=== PATIENT | female | born 1950 | race Caucasian/White ===

== ENCOUNTER 2016-06-07 09:26 | Outpatient (CLI) | payer MEDICARE, OTHER ==
[~2016-06-07] VITALS: Ht 167.6 cm; Wt 62.7 kg
--- NOTE | ~2016-06-07 | HEMODYNAMI ---
PATIENT:ROBERTO HENSLEY MEDICAL RECORD: [id number] : 46 LOCATION:DDanniCAT ADMISSION DATE: 06/07/16 Generatedon:06/07/201613:31 Patient name: ROBERTO HENSLEY Patient #: [id number] SSN: [id number] : 1950 Date of study: 06/07/2016 Page: Of Hemodynamic Procedure Report Patient Data Patient Demographics Procedure consent was obtained First Name: ROBERTO Gender: Female Last Name: : 1950 [facility] Initial: J Age: 66 year(s) Patient #: [id number] Race: Unknown SSN: [id number] Additional ID: [id number] Contact details Address: [address] [place] [address] State: [place] City: [place] Zip code: [address] Past Medical History Allergies: No known allergies Admission Admission Data Admission Date: 06/07/2016 Admission Time: 9:26 Arrival Date: 06/07/2016 Arrival Time: 0:00 Admit Source: Other Insurance Payor: Medicare, Private health insurance Height (in.): 68 BSA: 1.76 (m2) Height (cm.): 172.72 BMI: 21.29 (kg/m2) Weight (lbs.): 140 Weight (kg.): 63.5 Lab Results Lab Result Date: 06/07/2016 Lab Result Time: 0:00 Biochemistry Name Units Result Min Max BUN mg/dl 21 --(----)-* 7 18 CK-MB ng/ml 1.2 --(-*--)-- 0 3.6 Creatinine mg/dl 1 --(--*-)-- 0.6 1.3 Creatinine l 46 --(*---)-- 21 215 Kinase Troponin l ng/ml 0.017 --(-*--)-- 0 0.06 CBC Name Units Result Min Max Hemoglobin g/dl 17.4 --(---*)-- 13.5 17.5 Procedure Procedure Types Cath Procedure Diagnostic Procedure [facility] w/Coronaries PCI Procedure Coronary Stent Initial Miscellaneous Procedures Moderate Sedation up to 15 minutes Procedure Description Procedure Date Procedure Date: 06/07/2016 Procedure Start Time: 13:05 Procedure End Time: 13:25 Procedure Staff Name Function José Luis Anderson MD Performing Physician Huyen Wagner RT Scrub Anne Gill RN Nurse Maranda Lomax RT Monitor Procedure Data Cath Procedure Fluoroscopy Diagnostic fluoroscopy Total fluoroscopy Time: 5.2 time: 5.2 min min Diagnostic fluoroscopy Total fluoroscopy dose: 758 dose: 758 mGy mGy Contrast Material Contrast Material Type Amount (ml) Isovue 300 140 Entry Location Entry Primary Successful Side Size Upsize Upsize Entry Closure Succes sful Closure Location (Fr) 1 (Fr) 2 (Fr) Remarks Device Remarks Femoral Right 5 Fr 6 Fr Vascade artery Short Closure System Estimated blood loss: 10 ml Diagnostic catheters Device Type Used For End Catheter Placement Cordis 5Fr Pigtail Procedure Catheter (MP) Cordis 5Fr JL 4.0 Left Coronary Catheter (MP) Angiography Cordis 5Fr 3DRC Catheter Procedure (MP) Procedure Complications No complications Procedure Medications Medication Administration Route Dosage Oxygen NC 2 l/min Lidocaine 2% added to field 20 Heparin Flush Bag added to field 2 bags (1000units/500ml NS) 0.9% NaCl I.V. 100 ml/hr Versed I.V. 1 mg Fentanyl I.V. 50 mcg Heparin Bolus I.V. 4000 units Integrilin (Bolus I.V. 5.6 ml 2mg/ml) Nitroglycerin IC/IA I.C. 150 mcg Versed I.V. 1 mg Fentanyl I.V. 50 mcg Versed I.V. 1 mg Fentanyl I.V. 50 mcg Plavix P.O. 600 mg Aspirin P.O. 325 mg Hemodynamics Rest BSA: 1.76 (m2) HGB: 17.4 (g/dl) O2 Consumption: Estimated: 165.53 (ml/min) O2 Co nsumption indexed: Estimated:94.05 (ml/min/m) Heart Rate: 74 (bpm) Snapshots Pre Cath Intra NCS Post Cath Vital Signs Time Heart Resp SPO2 etCO2 [id number] NIBP (mmHg) Rhythm Pain Sedation Rate (ipm) (%) (mmHg) (mmHg) Status Level (bpm) 12:34:02 68 18 97 0 0 202/94(126) NSR 0 (11) 10(A) , No pain 12:38:28 64 18 97 0 0 168/88(138) NSR 0 (11) 10(A) , No pain 12:42:54 64 16 96 0 0 166/78(143) NSR 0 (11) 10(A) , No pain 12:47:17 63 19 94 0 0 149/81(127) NSR 0 (11) 10(A) , No pain 12:51:39 68 17 96 0 0 155/78(123) NSR 0 (11) 10(A) , No pain 12:56:01 63 16 93 0 0 138/77(111) NSR 0 (11) 10(A) , No pain 13:00:19 63 17 95 0 0 140/78(119) NSR 0 (11) 10(A) , No pain 13:04:37 60 16 94 0 0 137/74(116) NSR 0 (11) 10(A) , No pain 13:08:57 63 17 95 0 0 124/72(104) NSR 0 (11) 9(A) , No pain 13:13:13 65 23 96 0 0 137/70(104) NSR 0 (11) 9(A) , No pain 13:17:33 66 14 95 0 0 129/71(105) NSR 0 (11) 9(A) , No pain 13:21:49 70 16 96 0 0 137/75(118) NSR 0 (11) 9(A) , No pain 13:26:05 68 16 95 0 0 124/75(116) NSR 0 (11) 10(A) , No pain Medications Time Medication Route Dose Verified Delivered Reason Notes Effectiveness by by 12:37:26 Oxygen NC 2 José Luis Rodríguez used for l/min Justin Gill garbage stoker 12:51:15 Lidocaine 2% added 20ml José Luis Ordonez for local to vial Justin Anderson MD anesthetic field 12:51:22 Heparin Flush added 2 José Luis Ordonez used for Bag to bags Justin Anderson MD procedure (1000units/500ml field NS) 12:51:31 0.9% NaCl I.V. 100 José Luis Buffie Per physician ml/hr Justin Gill RN 13:03:49 Versed I.V. 1 mg José Luis Rodríguez for sedation Justin Gill RN 13:03:56 Fentanyl I.V. 50 José Luis Buffie for sedation mcg Justin Gill RN 13:07:01 Fentanyl I.V. 50 José Luis Álvarezie for sedation mcg Justin Gill RN 13:07:58 Versed I.V. 1 mg José Luis Rodríguez for sedation Justin Gill RN 13:12:10 Heparin Bolus I.V. 4000 José Luis Rodríguez for verifi ed units Justin Gill RN anticoagulation with dr anderson 13:14:58 Integrilin I.V. 5.6 José Luis Álvarezie for wasted (Bolus 2mg/ml) ml Justin Gill RN antiplatelet 4.4 ml therapy of vial 13:16:19 Nitroglycerin I.C. 150 José Luis Rodríguez for wasted IC/IA mcg Justin Gill RN vasodilation 4.4 ml of vial 13:20:05 Versed I.V. 1 mg José Luis Rodríguez for sedation Justin Gill RN 13:20:09 Fentanyl I.V. 50 José Luis Rodríguez for sedation mcg Justin Gill RN 13:30:47 Plavix P.O. 600 José Luis Rodríguez for mg Justin Gill RN antiplatelet therapy 13:30:54 Aspirin P.O. 325 José Luis Rodríguez for mg Justin Gill RN antiplatelet therapy Procedure Log Time Note 12:13:04 Patient Height : 68 cm 12:13:13 Patient Weight : 140 kg 12:13:13 Admit Source: Other 12:13:16 Arrival Date: 06/07/2016 12:00:00 AM 12:13:26 Insurance Payor : Private health insurance, Medicare 12:13:39 Diagnostic Cath Status : Elective 12:14:54 Huyen Wagner RT(R) sent for patient. Start room use. 12:14:55 Time tracking: Regular hours 12:15:03 Plan of Care:Hemodynamics will remain stable., Cardiac rhythm will kojo in stable., Comfort level will be maintained., Respiratory function will remain adequate., Patient/ family verbilizes understanding of procedure., Procedure tolerated without complication., Recovers from procedure without complications.. 12:15:16 H&P Date Dictated: 06/02/2016 Within 30 days and on chart., H&P Addendum completed by physician on day of procedure. (MUST COMPLETE FOR ALL OUTPATIENTS). 12:15:18 Pre-procedure instructions explained to patient. 12:15:39 Use device set Femoral Dx 12:15:41 Acist Syringe opened to sterile field. 12:15:41 Bag Decanter opened to sterile field. 12:15:42 Medline Cath Pack opened to sterile field. 12:15:42 Terumo 5Fr [place] Sheath opened to sterile field. 12:15:43 St Luis 260cm J .035 wire opened to sterile field. 12:15:44 Acist Hand Control opened to sterile field. 12:15:45 Acist Manifold opened to sterile field. 12:15:45 Diagnostic Infinity 5Fr Multipack catheter opened to sterile field. 12:15:46 Tegaderm 4 x 4 opened to sterile field. 12:19:53 Patient received from Outpatients to CCL 1 Alert and oriented. [facility] in Supine position. 12:19:54 Warm blankets applied, and lidya hugger turned on for patient comfort. 12:19:55 Correct patient and procedure confirmed by team. 12:19:56 Signed procedure consent form obtained from patient. 12:20:25 H&P Date Dictated: 06/02/2016 Within 30 days and on chart., H&P Addendum completed by physician on day of procedure. (MUST COMPLETE FOR ALL OUTPATIENTS). 12:21:04 Family in waiting room. 12:21:08 Patient NPO since Midnight. 12:21:18 Patient allergic to No known allergies 12:26:30 ECG and BP/O2 sat monitors applied to patient. 12:31:35 Vital chart was started 12:31:37 Baseline sample Acquired. 12:31:43 Rhythm: sinus rhythm 12:31:45 Full Disclosure recording started 12:31:48 Is the patient allergic to Iodine/contrast media? No. 12:32:15 Previous problem with sedation/anesthesia? Yes low bl pressure 12:32:33 IV patent on arrival in left forearm with 0.9% NaCl at [facility]. 12:32:43 Snore? Yes 12:33:12 Airway obstruction? No ? 12:33:30 Airway obstruction? Yes emphazema, O2 as needed 12:33:40 Sleep apnea? No 12:33:53 Is patient on blood thinner?No 12:33:58 Patient diabetic? No. 12:: Lab Result : Creatinine 1 mg/dl 12:: Lab Result : BUN 21 mg/dl :: Lab Result : Creatinine Kinase 46 l 12:: Lab Result : CK-MB 1.2 ng/ml 12:: Lab Result : Hemoglobin 17.4 g/dl 12: Lab Result : Troponin l 0.017 ng/ml ::58 Lab results completed and on chart. 12:36:05 Right groin area was prepped with chlora-prep and draped in sterile fas hion 12:36:06 Alarms reviewed by R. N. 12:36:07 Sharps counted by scrub and verified by R.N. 12:36:08 Physician paged 12:37:26 Oxygen 2 l/min NC was administered by Anne Gill RN; used for procedur e; 12:51:15 Lidocaine 2% 20ml vial added to field was administered by José Luis Anderson MD; for local anesthetic; 12:51:22 Heparin Flush Bag (1000units/500ml NS) 2 bags added to field was admini stered by José Luis Anderson MD; used for procedure; 12:51:31 0.9% NaCl 100 ml/hr I.V. was administered by Anne Gill RN; Per physic dipak; 13:01:03 Physician arrived 13:01:04 --------ALL STOP TIME OUT------ 13:01:05 Final Timeout: patient, procedure, and site verified with staff and baltazar rodrigues. All members of the team are in agreement. 13:01:08 Right groin site verified by team. 13:01:13 Physical assessment completed. ASA score P 2 - A patient with mild syst emic disease as per José Luis Anderson MD. 13:01:18 Sedation plan: IV Moderate Sedation Versed, Fentanyl 13:01:29 Zero performed for pressure channel P1 13:03:49 Versed 1 mg I.V. was administered by Anne Gill RN; for sedation; 13:03:56 Fentanyl 50 mcg I.V. was administered by Anne Glil RN; for sedation; 13:05:27 Procedure started. 13:05:36 Local anesthetic to right femoral artery with Lidocaine 2% by José Luis wilson MD.INITIAL ACCESS ONLY 13:05:46 A 5 Fr sheath was inserted into the Right Femoral artery 13:07:01 Fentanyl 50 mcg I.V. was administered by Anne Gill RN; for sedation; 13:07:58 Versed 1 mg I.V. was administered by Anne Gill RN; for sedation; 13:07:59 A Cordis 5Fr Pigtail Catheter (MP) was advanced over the wire and used for Procedure. 13:08:09 LV gram done using SMALLWOOD 13:08:16 EF : 55 % 13:08:18 Catheter removed. 13:08:30 A Cordis 5Fr JL 4.0 Catheter (MP) was advanced over the wire and used f or Left Coronary Angiography. 13:08:58 LCA angiography performed. 13:09:52 Catheter removed. 13:10:00 A Cordis 5Fr 3DRC Catheter (MP) was advanced over the wire and used for Procedure. 13:10:08 RCA angiography performed. 13:11:07 Catheter removed. 13:11:32 Terumo 6Fr [place] Sheath opened to sterile field. 13:11:33 Enerkemtronic Launcher 6Fr AR 2.0 guide catheter opened to sterile field. 13:11:38 [employer] BasixCompak Inflation Kit opened to sterile field. 13:11:45 Mccullough Whisper J 300cm 0.014 guide wire opened to sterile field. 13:11:47 Proceeding to intervention. 13:12:10 Heparin Bolus 4000 units I.V. was administered by Anne Gill RN; for anticoagulation; verified with dr anderson 13:13:38 6 Fr AR 2 guide catheter was inserted over the wire 13:13:43 whisper wire advanced. 13:14:37 Wire advanced across lesion. 13:14:58 Integrilin (Bolus 2mg/ml) 5.6 ml I.V. was administered by Anne Gill R N; for antiplatelet therapy; wasted 4.4 ml of vial 13:15:56 Inflation Number: 1 A Biofreedom 3.0 x 18 stent was prepped and advance d across the Mid RCA. The stent was deployed at 11 INGRIS for 0:10 (min:sec). 13:16:19 Nitroglycerin IC/IA 150 mcg I.C. was administered by Anne Gill RN; fo r vasodilation; wasted 4.4 ml of vial 13:18:30 Inflation Number: 1 A Biofreedom 3.0 x 11 stent was prepped and advance d across the Dist RCA. The stent was deployed at 9 INGRIS for 0:05 (min:sec). 13:19:01 Inflation number: 2 The stent balloon was then re-inflated across the M id RCA to 13 INGRIS for 0:10 (min:sec). 13:19:42 Inflation number: 3 The stent balloon was then re-inflated across the M id RCA to 7 INGRIS for 0:10 (min:sec). 13:20:05 Versed 1 mg I.V. was administered by Anne Glil RN; for sedation; 13:20:09 Fentanyl 50 mcg I.V. was administered by Anne Gill RN; for sedation; 13:21:58 Vascade 6/7 Fr Closure Device opened to sterile field. 13:22:06 -REMOVE D 13:22:07 Stent catheter was removed intact over wire. 13:22:08 Balloon removed over the wire. 13:22:09 Wire removed. 13:22:09 Guide catheter removed. 13:23:52 Sheath upsized to a 6 Fr Short. 13:23:52 Sheath removed intact; hemostasis achieved with Vascade Closure System to the Right Femoral artery. 13:23:55 Procedure ended.(Physican Out) 13:24:08 Fluoroscopy time 05.20 minutes. 13:24:16 Fluoroscopy dose: 758 mGy 13:24:16 Flurop Dose total: 758 13:24:21 Contrast amount:Isovue 300 140ml. 13:24:23 Sharps counted by scrub and verified by R.N. 13:24:25 Insertion/operative site no bleeding no hematoma. 13:24:30 Post right femoral artery:stable 13:24:40 Post-procedure physical assessment completed. ASA score P 2 - A patient with mild systemic disease as per José Luis Anderson MD. 13:24:46 Post procedure rhythm: sinus rhythm 13:24:49 Estimated blood loss: 10 ml 13:24:51 Post procedure instruction explained to patient.Patient verbalizes understanding. 13:24:58 Procedure type changed to Cath procedure, Diagnostic procedure, LHC, LH C w/Coronaries, PCI procedure, Coronary Stent Initial, Miscellaneous Procedures, Moderate Sedation up to 15 minutes 13:25:04 Procedure and supply charges have been captured, reviewed, submitted an d are correct. 13:25:25 Procedure Complication : No complications 13:25:30 Vital chart was stopped 13:25:30 See physician's report for complete and final results. 13:25:42 Report given to Pre/Post Procedure Room. 13:25:47 Patient transfered to Pre/Post Procedure Room with Stretcher. 13:25:49 Procedure ended. 13:25:49 Full Disclosure recording stopped 13:25:52 End room use (Document Last) 13:26:14 ACC-PCI Only Patient was given prescriptions, or instructed by Eber Anderson MD to start/continue the following medications upon discharge: Plavix 13:30:47 Plavix 600 mg P.O. was administered by Anne Gill RN; for antiplatelet therapy; 13:30:54 Aspirin 325 mg P.O. was administered by Anne Gill RN; for antiplatele t therapy; Intervention Summary Intervention Notes Time ActionType Lesion and Equipment Action# Pressure Duration Attributes Used 13:15:56 Place stent Mid RCA Biofreedom 1 11 00:10 3.0 x 18 stent 13:18:30 Place stent Dist RCA Biofreedom 1 9 00:05 3.0 x 11 stent 13:19:01 Reinflate Mid RCA Biofreedom 2 13 00:10 stent 3.0 x 11 balloon stent 13:19:42 Reinflate Mid RCA Biofreedom 3 7 00:10 stent 3.0 x 11 balloon stent Device Usage Item Name Manufacture Quantity Catalog Hospital Part Current Minima l Lot# / Number Charge Number Stock Stock Serial# Code [facility] 600[facility] 886960 635589 452456 20 Sprig Bag Microtek 1 296622 81659 675523 5 Steel Wool [employer] Inc. Medline Cardinal 1 [id number] 110217 63054 906710 5 Cath Pack Health Terumo 5Fr Terumo 1 [id number] 129996 031493 556158 [address] Luis 1 281734 278526 983073 719475 30 260cm J .035 wire Acist Hand Acist 1 98839 565078 267263 806480 5 Control Medical Systems Inc Acist Acist 1 54466 228881 791271 829847 5 Needle HR Medical Systems Inc Diagnostic Cardinal 1 [id number] 940986 51685 731351 30 Infinity Health 5Fr Multipack catheter Tegaderm 4 3M 1 1626W 586247 766392 825582 5 x 4 Cordis 5Fr Cardinal 1 744961 5 Pigtail Health Catheter (MP) Cordis 5Fr Cardinal 1 994061 5 JL 4.0 Health Catheter (MP) Cordis 5Fr Cardinal 1 265322 5 3DRC Health Catheter (MP) Terumo 6Fr Terumo 1 [id number] 256145 915158 227607 40 [place] Sheath Medtronic Medtronic 1 [id number] 129412 14233 711146 1 Launcher 6Fr AR 2.0 guide catheter Merit Merit 1 [id number] 697751 943154 184234 15 BasixCompak Medical Inflation Kit Mccullough Mccullough 1 [id number] 446758 514953 964117 5 Whisper J Vascular 300cm 0.014 guide wire Biofreedom Biosensors 1 [facility]2-3018 652072 352753 5 [id number] 3.0 x 18 Europe SA stent Biofreedom Biosensors 1 [facility]2-3011 273260 363923 5 [id number] 3.0 x 11 Europe SA stent Vascade 6/7 Cardiva 1 [id number] 522860 692101 022029 5 Fr Closure Medical, Device Inc. Signature Audit [place] Stage Time Signature Unsigned Intra-Procedure 06/07/2016 Maranda Lomax 1:31:55 PM RT(R) Signatures Monitor : Maranda Lomax Signature : RT Date : Time : [facility] [address] [place] [address]
[~2016-06-07 09:26] MED LIST: ALLERGY SHOT; ASPIRIN81 MG PO; BAYER CHEWABLE81 MG PO; CALCIUM 600+D T1 TA1 PO; COLACE100 MG PO; DILANTIN100 MG PO; FETZIMA40 MG PO; FLORANEX / LACT1 TAB PO; HYDROCODON-ACE1 EAC9 PO; IMITREX100 MG; IMITREX100 MG PO; IMODIUM2 MG; K-DUR20 MEQ PO; LISINOPRIL2.5 MG PO; NITROSTAT0.4 MG; PHENERGAN25 M1 PO; PLAVIX75 MG PO; SYNTHROID175 MCG PO; TOPROL XL25 MG PO; TRILEPTAL600 MG PO
[2016-06-07] MEDS ORDERED: SYNTHROID75 MCG PO (09:46)
[2016-06-07] MEDS ORDERED: AUGMENTIN 875-11 TAB PO (09:48)
[2016-06-07] MEDS ORDERED: STERAPRED 5MG 125 MG PO (09:49)
[2016-06-07 09:58] VITALS: BP 186/91; Ht 167.6 cm; Wt 62.7 kg
[2016-06-07 10:06] LABS: BASOPHILS 0.2 % (0-2); EOSINOPHILS 0.2 % (0-7); HEMATOCRIT 50.5 % (36.0-48.0); HEMOGLOBIN 17.4 g/dL (12-16); LYMPHOCYTES 8.8 % (15-50); MCH 32.3 pg (26.0-34.0); MCHC 34.5 g/dL (31.0-37.0); MCV 93.7 fL (80.0-100.0); MONOCYTES 9.2 % (2-11); NEUTROPHILS 79.6 % (40-80); PLATELET COUNT 295 10x3/uL (130-400); RBC 5.39 10x6/uL (4.00-5.40); RDW 13.4 % (11.5-14.5)
[2016-06-07 10:30] LABS: CALC OSMOLALITY 277 mosm/kg (275-300); CALCIUM 9.4 mg/dL (8.5-10.1); CARBON DIOXIDE 24.2 mmol/L (21.0-32.0); CHLORIDE - SERUM 102 mmol/L (98-107); CKMB 1.2 U/L (0.0-3.6); CREATINE KINASE 46 UL (21-215); GLUCOSE 110 mg/dL (74-106); SODIUM 137 mmol/L (136-145); TROPONIN-I < 0.017 ng/mL (0.000-0.060); UREA NITROGEN 21 mg/dL (7-18); eGFR NON AFRICAN AMERICAN 58 mL/min (90-120)
[2016-06-07] MEDS ORDERED: PLAVIX75 MG PO (14:12)
--- NOTE | 2016-06-07 16:33 | NUR ---
1400-RIGHT GROIN CDI, C/O PAIN IN JAW, NORCO X 1 GIVEN PO 1430-RIGHT GROIN CDI, NO HEMATOMA OR BLEEDING NOTED, JAW PAIN MUCH BETTER
--- NOTE | 2016-06-07 18:55 | NUR ---
1800-RIGHT GROIN CDI, IV D'C WITH CATH TIP INTACT, WRITTEN AND VERBAL INSTRUCTIONS GIVEN TO PT. UP TO REST ROOM - VOID 1830-D'C HOME WITH FRIEND, NO DISTRESS NOTED
--- NOTE | 2016-06-09 08:06 | OP ---
PATIENT NAME: ROBERTO HENSLEY MEDICAL RECORD: [id number] :46 LOCATION:D.CAT ADMISSION DATE: SURGEON: BRADY SIDDIQI MD DATE OF OPERATION: 06/07/2016 PROCEDURES: 1. PTCA stent, RCA. 2. Left heart catheterization. 3. Selective coronary angiography. 4. Left ventriculogram. INDICATIONS: Angina and coronary artery disease. PROCEDURE IN DETAIL: After informed consent was obtained and after detailed explanation of risks, benefits as well as alternative therapies, the patient elected to proceed with angiogram and angioplasty. The right femoral area was prepped and draped in normal sterile fashion. The right femoral artery was cannulated via modified Seldinger technique with placement of 6-Wolof sheath. All catheters exchanged through this sheath. FINDINGS: The left ventriculogram was performed in the standard 30-degree SMALLWOOD view, reveals good cardiac wall motion throughout all segments. Overall ejection fraction is 60%. SELECTIVE CORONARY ANGIOGRAPHY: 1. Left main showed no significant angiographic disease. 2. Left anterior descending has moderate irregularities, but no flow-limiting stenosis. 3. The left circumflex shows moderate irregularities, but no flow-limiting stenosis. 4. The right coronary has previously placed stents. The mid stent has 70%-75% in-stent restenosis. This lesion was approximately 18 mm long, EBONI 3 flow before the intervention. PTCA STENT OF THE RIGHT CORONARY: This was addressed with a 3.0 x 18 and a 3.0 x 11, both BioFreedom stents. Result was 0% residual stenosis, EBONI 3 flow. Reference vessel diameter is 3.0. OVERALL IMPRESSION: Successful percutaneous transluminal coronary angioplasty stent of the right coronary artery in-stent restenosis going from 70%-75% initial stenosis to 0% residual. TRANSINT:[id number] Voice Confirmation ID: [id number] DOCUMENT ID: [id number] BRADY SIDDIQI MD at 0806 CC: [id number] DICTATION DATE: 06/07/16 1330 BRICK LAYER: 06/07/16 1821 DEP CLI 06/07/16 [place] [address]
== END 2016-06-07 18:30 | disposition home or self-care (01) ==
LOC: D.CATH 09:26
PROVIDERS: Internal Medicine Interventional Cardiology
DX: I25.119 Atherosclerotic heart disease of native coronary artery with unspecified angina pectoris (principal); T82.855A Stenosis of coronary artery stent, initial encounter; Z00.6 Encounter for examination for normal comparison and control in clinical research program
CPT/HCPCS: 93458; C9600

== ENCOUNTER 2016-06-09 09:06 | Emergency (ER) | payer MEDICARE, OTHER ==
[~2016-06-09 09:06] MED LIST changes: +AUGMENTIN 875-11 TAB PO; +STERAPRED 5MG 125 MG PO; +SYNTHROID75 MCG PO
== END 2016-06-09 10:30 | disposition home or self-care (01) ==
LOC: D.ER 09:06
DX: R07.9 Chest pain, unspecified (principal); E87.1 Hypo-osmolality and hyponatremia

== ENCOUNTER 2017-06-24 07:48 | Outpatient (CLI) | payer MEDICARE, OTHER ==
[~2017-06-24] VITALS: Ht 167.6 cm; Wt 67.3 kg
--- NOTE | ~2017-06-24 | HEMODYNAMI ---
PATIENT:ROBERTO HENSLEY MEDICAL RECORD: [id number] : 46 LOCATION:[facility] ADMISSION DATE: 06/24/17 Generatedon:06/24/201710:50 Patient name: ROBERTO HENSLEY Patient #: [id number] SSN: [id number] : 1950 Date of study: 06/24/2017 Page: Of Hemodynamic Procedure Report Patient Data Patient Demographics Procedure consent was obtained First Name: ROBERTO Gender: Female Last Name: : 1950 [facility] Initial: J Age: 67 year(s) Patient #: [id number] Race: Unknown SSN: [id number] Additional ID: [id number] Contact details [address]: [address] [place] [address] State: [place] City: [place] Zip code: [address] Past Medical History Allergies Allergen Reaction Date Comments Reported Other allergy 06/24/2017 Morphine Admission Admission Data Admission Date: 06/24/2017 Admission Time: 7:48 Lab Results Lab Result Date: 06/24/2017 Lab Result Time: 8:15 Biochemistry Name Units Result Min Max BUN mg/dl 18 --(---*)-- 7 18 Creatinine mg/dl 1.2 --(---*)-- 0.6 1.3 CBC Name Units Result Min Max Hematocrit % 47.1 --(-*--)-- 42 54 Hemoglobin g/dl 15.8 --(--*-)-- 13.5 17.5 Procedure Procedure Types Cath Procedure Diagnostic Procedure LHC LHC w/Coronaries Sedation Charges Moderate Sedation up to 15 minutes PCI Procedure Coronary Stent Coronary Stent Initial Procedure Description Procedure Date Procedure Date: 06/24/2017 Procedure Start Time: 10:30 Procedure End Time: 10:49 Procedure Staff Name Function José Luis Anderson MD Performing Physician Benoit Cabrales RT Monitor Ziyad Hernández RN Nurse Naye Lowe RT Scrub Abhishek Bernard RN Reo Asset Manager Procedure Data Cath Procedure Fluoroscopy Diagnostic fluoroscopy Total fluoroscopy Time: 3.4 time: 3.4 min min Diagnostic fluoroscopy Total fluoroscopy dose: 268 dose: 268 mGy mGy Contrast Material Contrast Material Type Amount (ml) Isovue 300 72 Entry Location Entry Primary Successful Side Size Upsize Upsize Entry Closure Succes sful Closure Location (Fr) 1 (Fr) 2 (Fr) Remarks Device Remarks Femoral Right 5 Fr 6 Fr Exoseal artery Short Estimated blood loss: 10 ml Diagnostic catheters Device Type Used For End Catheter Placement MULTIPACK Pigtail 5 Fr Procedure catheter MULTIPACK JL 4.0 5Fr Procedure catheter MULTIPACK 3DRC 5Fr Procedure catheter Procedure Complications No complications Procedure Medications Medication Administration Route Dosage 0.9% NaCl I.V. 100 ml/hr Oxygen NC 2 l/min Heparin Flush Bag added to field 2 bags (1000units/500ml NS) Lidocaine 2% added to field 20 Versed I.V. 2 mg Fentanyl I.V. 100 mcg Versed I.V. 1 mg Versed I.V. 1 mg Fentanyl I.V. 100 mcg Versed I.V. 2 mg Heparin Bolus I.V. 4000 units Hemodynamics Rest HGB: 15.8 (g/dl) Heart Rate: 74 (bpm) Snapshots Pre Cath Intra NCS Post Cath Vital Signs Time Heart Resp SPO2 etCO2 NIBP Rhythm Pain Sedation Rate (ipm) (%) (mmHg) (mmHg) Status Level (bpm) 10:13:59 75 12 98 0 126/68(95) NSR 0 (11) 10(A) , No pain 10:18:40 75 15 97 0 118/60(91) NSR 0 (11) 10(A) , No pain 10:23:18 75 14 97 0 121/63(94) NSR 0 (11) 10(A) , No pain 10:27:57 75 15 96 0 114/59(88) NSR 0 (11) 10(A) , No pain 10:37:22 76 13 94 0 105/54(75) NSR 0 (11) 10(A) , No pain 10:41:57 80 19 96 0 119/64(90) NSR 0 (11) 9(A) , No pain 10:46:35 85 21 95 0 125/60(96) NSR 0 (11) 9(A) , No pain Medications Time Medication Route Dose Verified Delivered Reason Notes Effectiveness by by 10:12:12 0.9% NaCl I.V. 100 Ziyad Ziyad Per physician ml/hr Edgar Hernández RN RN 10:12:32 Oxygen NC 2 Ziyad Ziyad Per physician l/min dEgar Hernández RN RN 10:12:50 Heparin Flush added 2 Ziyad Ziyad used for Bag to bags Edgar Hernández procedure (1000units/500ml field RN RN NS) 10:13:02 Lidocaine 2% added 20ml Ziyad Ziyad for local to vial Lorefraín Hernández anesthetic field RN RN 10:25:51 Versed I.V. 2 mg Ziyad Ziyad for sedation Edgar Hernández RN RN 10:26:01 Fentanyl I.V. 100 Ziyad Ziyad for sedation mcg Edgar Hernández RN RN 10:28:28 Versed I.V. 1 mg Ziyad Ziyad for sedation Edgar Hernández RN RN 10:31:12 Versed I.V. 1 mg Ziyad Ziyad for sedation Edgar Hernández RN RN 10:35:55 Fentanyl I.V. 100 Ziyad Ziyad for sedation mcg Edgar Hernández RN RN 10:36:51 Versed I.V. 2 mg Ziyad Ziyad for sedation Edgar Hernández RN RN 10:41:03 Heparin Bolus I.V. 4000 Ziyad Ziyad for units Edgar Hernández anticoagulation RN balance recesser Log Time Note 10:01:09 Abhishek Bernard RN sent for patient. Start room use. 10:01:11 Time tracking: Regular hours (M-F 7:00 - 5:00) 10:01:15 Plan of Care:Hemodynamics will remain stable., Cardiac rhythm will remain stable., Comfort level will be maintained., Respiratory function will remain adequate., Patient/ family verbilizes understanding of procedure., Procedure tolerated without complication., Recovers from procedure without complications.. 10:02:59 Patient received from Pre/Post Procedure Room to CCL 1 Alert and oriented. Tansferred to table in Supine position. 10:03:00 Warm blankets applied, and lidya hugger turned on for patient comfort. 10:03:00 Correct patient and procedure confirmed by team. 10:03:01 Signed procedure consent form obtained from patient. 10:03:02 ECG and BP/O2 sat monitors applied to patient. 10:03:12 H&P Date Dictated: 06/15/2017 Within 30 days and on chart., H&P Addendum completed by physician on day of procedure. (MUST COMPLETE FOR ALL OUTPATIENTS). 10:03:14 Pre-procedure instructions explained to patient. 10:03:14 Pre-op teaching completed and patient verbalized understanding. 10:03:15 Family in waiting room. 10:03:16 Patient NPO since Midnight. 10:12:12 0.9% NaCl 100 ml/hr I.V. was administered by Ziyad Hernández RN; Per physician; 10:12:32 Oxygen 2 l/min NC was administered by Ziyad Hernández RN; Per physician; 10:12:50 Heparin Flush Bag (1000units/500ml NS) 2 bags added to field was administered by Ziyad Hernández RN; used for procedure; 10:13:02 Lidocaine 2% 20ml vial added to field was administered by Ziyad Hernández RN; for local anesthetic; 10:13:08 Vital chart was started 10:15:22 Zero performed for pressure channel P1 10:16:11 Baseline sample Acquired. 10:16:14 Rhythm: sinus rhythm 10:16:15 Full Disclosure recording started 10:16:41 Patient allergic to Other allergyMorphine 10:16:42 Is the patient allergic to Iodine/contrast media? No. 10:16:43 Is patient on blood thinner?Yes 10:16:45 ACC The patient was administered the following blood thiners within the last 24 hours: ACCPlavix 10:16:47 Patient diabetic? No. 10:16:49 Previous problem with sedation/anesthesia? No ? 10:16:50 Snore? No 10:16:51 Sleep apnea? No 10:16:52 Deviated septum? No 10:16:53 Opens mouth fully? Yes 10:16:53 Sticks out tongue? Yes 10:16:57 Airway obstruction? Yes COPD 10:17:00 Dentures? Yes OUT 10:17:04 Pre procedure: right dorsailis pedis pulse 2+ Normal; easily identifiable; not easily obliterated 10:17:06 Patient pain scale 0/10 ?. 10:17:19 IV patent on arrival in left antecubital with 0.9% NaCl at [facility]. 10:17:55 Lab Result : BUN 18 mg/dl 10:17:55 Lab Result : Creatinine 1.2 mg/dl 10:: Lab Result : Hemoglobin 15.8 g/dl 10:: Lab Result : Hematocrit 47.1 % :: Lab results completed and on chart. 10:18:00 Right groin area was prepped with chlora-prep and draped in sterile fashion 10:18:01 Alarms reviewed by R. N. 10:18: Sharps counted by scrub and verified by R.N. 10:18:04 Use device set Femoral Dx 10:18:05 ACIST Syringe (65750) opened to sterile field. 10:18:05 Bag Decanter (2002S) opened to sterile field. 10:18:06 Medline Cath Pack ([id number]) opened to sterile field. 10:18:07 ACIST Hand Control (68292) opened to sterile field. 10:18:07 ACIST Manifold (48073) opened to sterile field. 10:18:08 Tegaderm 4 x 4 (1626W) opened to sterile field. 10:18:11 SHEATH Prelude 5Fr 0.035 (UIB-8V-96-035) opened to sterile field. 10:18:12 DIAGNOSTIC WIRE .035 260cm J wire (359450) opened to sterile field. 10:18:13 DIAGNOSTIC Multipack 5Fr catheter set (PP8150) opened to sterile field. 10:20:38 Zero performed for pressure channel P1 10:25:23 Physician arrived 10::23 --------ALL STOP TIME OUT------ 10:25:24 Final Timeout: patient, procedure, and site verified with staff and physician. All members of the team are in agreement. 10:25:26 Right groin site verified by team. 10:25:28 Physical assessment completed. ASA score P 2 - A patient with mild systemic disease as per José Luis Anderson MD. 10:25:31 Sedation plan: IV Moderate Sedation Medication:Versed, Fentanyl 10:25:51 Versed 2 mg I.V. was administered by Ziyad Hernández RN; for sedation; 10:26:01 Fentanyl 100 mcg I.V. was administered by Ziyad Hernández RN; for sedation; 10::28 Versed 1 mg I.V. was administered by Ziyad Lorigan RN; for sedation; 10:30:28 Procedure started. 10:30:31 Local anesthetic to right femoral artery with Lidocaine 2% by José Luis Anderson MD.INITIAL ACCESS ONLY 10:31:12 Versed 1 mg I.V. was administered by Ziyad Hernández RN; for sedation; 10:35:55 Fentanyl 100 mcg I.V. was administered by Ziyad Hernández RN; for sedation; 10:36:08 A 5 Fr sheath was inserted into the Right Femoral artery 10:36:37 A MULTIPACK Pigtail 5 Fr catheter was advanced over the wire and used for Procedure. 10:36:51 Versed 2 mg I.V. was administered by Ziyad Hernández RN; for sedation; 10:36:52 LV gram done using SMALLWOOD 10:36:54 Injector settings: Ml/sec: 10, Volume: 20, 10:37:08 EF : 60 % 10:37:34 Catheter exchanged over wire. 10:37:40 A MULTIPACK JL 4.0 5Fr catheter was advanced over the wire and used for Procedure. 10:38:53 SHEATH Prelude 6Fr 0.035 (BBX-4C-79-035) opened to sterile field. 10:39:07 Catheter exchanged over wire. 10:39:16 A MULTIPACK 3DRC 5Fr catheter was advanced over the wire and used for Procedure. 10:39:21 RCA angiography performed. 10:39:22 Catheter removed. 10:39:29 GUIDE 6FR HS II SH catheter ([id number]) opened to sterile field. 10:40:59 Sheath upsized to a 6 Fr Short. 10:41:03 Heparin Bolus 4000 units I.V. was administered by Ziyad Hernández RN; for anticoagulation; 10:41:17 CHOICE PT Extra Support 182cm wire ([id number]) opened to sterile field. 10:41:18 INFLATOR Merit BasixCompak (LP0474) opened to sterile field. 10:41:30 6 Fr HS II SH guide catheter was inserted over the wire 10:41:41 choice pt wire advanced. 10:41:58 Wire advanced across lesion. 10:42:59 Place stent Inflation Number: 1 A ORI RX 3.0 x 18 stent ([id number]) was prepped and advanced across the Mid RCA. The stent was deployed at 21 INGRIS for 0:10 (min:sec). 10:43:39 Inflation number: 1 The stent balloon was then re-inflated across the Prox RCA to 21 INGRIS for 0:10 (min:sec). 10:43:41 Stent catheter was removed intact over wire. 10:43:42 Wire removed. 10:43:43 Guide catheter removed. 10:43:54 EXOSEAL 6Fr (EX600) opened to sterile field. 10:44:10 Sheath removed intact; hemostasis achieved with Exoseal to the Right Femoral artery. 10:44:12 Procedure ended.(Physican Out) 10:46:43 Fluoroscopy time 03.40 minutes. 10:46:47 Fluoroscopy dose: 268 mGy 10:46:47 Flurop Dose total: 268 10:46:54 Contrast amount:Isovue 300 72ml. 10:46:59 Sharps counted by scrub and verified by R.N. 10:47:17 Insertion/operative site no bleeding no hematoma. 10:47:40 Post-op/insertion site Right Femoral artery dressed using a 4 x 4 and Tegaderm. 10:47:45 Post right femoral artery:stable, soft, clean and dry 10:47:50 Post Procedure Pulses reassessed and unchanged 10:47:52 Post-procedure physical assessment completed. ASA score P 2 - A patient with mild systemic disease as per José Luis Anderson MD. 10:47:55 Post procedure rhythm: unchanged. 10:47:58 Estimated blood loss: 10 ml 10:47:59 Post procedure instruction explained to patient.Patient verbalizes understanding. 10:48:00 Patient needs reinforcement of post procedure teaching. 10:48:48 Procedure type changed to Cath procedure, Diagnostic procedure, LHC, LHC w/Coronaries, Sedation Charges, Moderate Sedation up to 15 minutes, PCI procedure, Coronary Stent, Coronary Stent Initial 10:49:13 Procedure and supply charges have been captured, reviewed, submitted and are correct. 10:49:16 Procedure Complication : No complications 10:49:19 Vital chart was stopped 10:49:20 See physician's report for complete and final results. 10:49:21 Report given to Pre/Post Procedure Room. 10:49:24 Patient transfered to Pre/Post Procedure Room with Stretcher. 10:49:26 Procedure ended. 10:49:26 Full Disclosure recording stopped 10:49:29 End room use (Document Last) Intervention Summary Intervention Notes Time ActionType Lesion and Equipment Used Action# Pressure Duration Attributes 10:42:59 Place stent Mid RCA ORI RX 3.0 x 1 21 00:10 18 stent ([id number]) 10:43:39 Reinflate Prox RCA ORI RX 3.0 x 1 21 00:10 stent 18 stent balloon ([id number]) Device Usage Item Name Manufacture Quantity Catalog Number Hospital Part Current Minimal Lot# / Charge Number Stock Stock Serial# Code ACIST Syringe Acist 1 88081 [id number] 594043 [id number] 20 (35821) [employer] Bag Decanter Microtek 1 2001S 697412 36560 002748 5 (2001S) Medical Inc. Medline Cath Cardinal 1 [id number] 377550 36631 355686 5 Pack Health ([id number]) ACIST Hand Acist 1 59243 580827 169930 937512 5 Control (99071) [employer] Inc ACIST Manifold Acist 1 90028 510606 960116 651253 5 (13999) Medical Systems Inc Tegaderm 4 x 4 3M 1 1626W 022165 740437 453926 5 (1626W) SHEATH Prelude Merit 1 JMD-2T-82-035 161377 426788 761162 5 5Fr 0.035 Medical (QSP-8D-20-035) DIAGNOSTIC WIRE St Luis 1 816551 901791 052887 589409 30 .035 260cm J wire (784522) DIAGNOSTIC Cardinal 1 PA0761 125881 81325 179586 30 Multipack 5Fr Health catheter set (ET0412) MULTIPACK Cardinal 1 834260 5 Pigtail 5 Fr Health catheter MULTIPACK JL Cardinal 1 [id number] 5 4.0 5Fr Health catheter SHEATH Prelude Merit 1 LMI-4M-09-35 595630 3113139 989660 5 6Fr 0.035 Medical (OFU-3Y-81-035) MULTIPACK 3DRC Cardinal 1 863763 5 5Fr catheter Health GUIDE 6FR HS II Medtronic 1 [id number] 899944 04501 317449 1 SH catheter ([id number]) CHOICE PT Extra Rinard 1 [id number] 004547 659324 281256 5 Support 182cm Scientific wire ([id number]) INFLATOR Merit Merit 1 CE9983 249600 273260 333264 15 [facility] (ZZ3861) ORI RX 3.0 x Medtronic 1 [id number] 556886 0452602 079948 5 [id number] 18 stent ([id number]) EXOSEAL 6Fr Cardinal 1 EX600 628413 984371 985017 10 (EX600) Health Signature Audit Dickens Stage Time Signature Unsigned Intra-Procedure 06/24/2017 Benoit Cabrales 10:50:21 AM RT(R) Signatures Monitor : Benoit Cabrales RT Signature : Date : Time : [address] [address]
--- NOTE | ~2017-06-24 | OP ---
PATIENT NAME: ROBERTO HENSLEY MEDICAL RECORD: [id number] :46 LOCATION:[facility] ADMISSION DATE: SURGEON: BRADY SIDDIQI MD DATE OF OPERATION: 06/24/2017 PROCEDURES: 1. PTCA stent RCA. 2. Left heart catheterization. 3. Selective coronary angiography. 4. Left ventriculogram. INDICATION: Angina and coronary artery disease. PROCEDURE IN DETAIL: After informed consent was obtained and after a detailed description of risks, benefits as well as alternative therapies, the patient elected to proceed with angiogram and angioplasty. The right femoral area was prepped and draped in normal sterile fashion. Right femoral artery was cannulated via modified Seldinger technique with placement of 6-Gambian sheath. All catheters exchanged through this sheath. FINDINGS: Left ventriculogram was performed in standard 30-degree SMALLWOOD view, reveals good cardiac wall motion throughout all segments. Overall ejection fraction estimated 60%. SELECTIVE CORONARY ANGIOGRAPHY: 1. Left main is with no significant angiographic disease. 2. Left anterior descending has moderate irregularities, but no flow-limiting stenosis. 3. The left circumflex has moderate irregularities, but no flow-limiting stenosis. 4. Right coronary artery has 90% in-stent restenosis in the mid vessel. PTCA STENT OF THE RCA: The stent used was a 3.0 x 18 mm [place]. The result was 0% residual stenosis. OVERALL IMPRESSION: Successful PTCA stent of the RCA going from 90% initial stenosis to 0% residual. TRANSINT:[id number] Voice Confirmation ID: [id number] DOCUMENT ID: [id number] BRADY SIDDIQI MD at 1848 CC: [id number] DICTATION DATE: 06/24/17 1048 QUARTER SUPERVISOR: 06/24/17 1437 DEP CLI 06/24/17 [place] [address]
[2017-06-24] MEDS ORDERED: VALIUM5 MG PO (08:02)
[2017-06-24] MEDS ORDERED: ADVAIR 250/501 DISK INH (08:03)
[2017-06-24] MEDS ORDERED: LOPERAMIDE HCL2 MG PO (08:03)
[2017-06-24] MEDS ORDERED: IPRAT-ALBUT 0.5-3 ML UPD (08:04)
[2017-06-24 08:26] VITALS: BP 173/77; Ht 167.6 cm; Wt 67.3 kg
[2017-06-24 08:27] LABS: BASOPHILS 0.6 % (0-2); EOSINOPHILS 2.7 % (0-7); HEMATOCRIT 47.1 % (36.0-48.0); HEMOGLOBIN 15.8 g/dL (12-16); IMMATURE GRANULOCYTES 0.5 % (0-5); LYMPHOCYTES 3.3 % (15-50); MCH 32.9 pg (26.0-34.0); MCHC 33.5 g/dL (31.0-37.0); MCV 98.1 fL (80.0-100.0); MEAN PLATELET VOLUME 9.9 fL (7.4-10.4); MONOCYTES 7.2 % (2-11); NEUTROPHILS 85.7 % (40-80); PLATELET COUNT 246 10x3/uL (130-400); RDW 13.9 % (11.5-14.5); WBC 8.8 10x3/uL (4.8-10.8)
[2017-06-24 08:48] LABS: ANION GAP 12.6 mmol/L (8-16); CALCIUM 9.9 mg/dL (8.5-10.1); CARBON DIOXIDE 26.6 mmol/L (21.0-32.0); CREATININE - SERUM 1.2 mg/dL (0.6-1.3); POTASSIUM - SERUM 4.2 mmol/L (3.5-5.1)
== END 2017-06-24 15:00 | disposition home or self-care (01) ==
LOC: D.CATH 07:48
PROVIDERS: Internal Medicine Interventional Cardiology
DX: I25.10 Atherosclerotic heart disease of native coronary artery without angina pectoris (principal); R06.02 Shortness of breath; I10 Essential (primary) hypertension; R55 Syncope and collapse; Z01.812 Encounter for preprocedural laboratory examination

== ENCOUNTER → 2017-08-05 07:29 | Outpatient (CLI) | payer MEDICARE, OTHER ==
[2017-06-24 08:26] VITALS: BMI 23.9
[~2017-08-05 07:29] MED LIST changes: +ADVAIR 250/501 DISK INH; +IPRAT-ALBUT 0.5-3 ML UPD; +LOPERAMIDE HCL2 MG PO; +VALIUM5 MG PO
== END | disposition home or self-care (01) ==
LOC: D.MRI 07:29
DX: M54.16 Radiculopathy, lumbar region (principal)

== ENCOUNTER 2017-09-12 19:00 | Outpatient (CLI) | payer MEDICARE, OTHER ==
[2017-06-24 08:26] VITALS: BMI 23.9
== END 2017-09-12 23:59 | disposition home or self-care (01) ==
LOC: D.MAMMO 19:00
DX: Z85.3 Personal history of malignant neoplasm of breast (principal); Z08 Encounter for follow-up examination after completed treatment for malignant neoplasm

== ENCOUNTER 2017-10-05 07:27 | Outpatient (CLI) | payer MEDICARE, OTHER ==
[~2017-10-05] VITALS: Ht 167.6 cm; Wt 62.7 kg
--- NOTE | ~2017-10-05 | OP ---
PATIENT NAME: ROBERTO HENSLEY MEDICAL RECORD: [id number] :46 LOCATION:D.CAT ADMISSION DATE: SURGEON: BRADY SIDDIQI MD DATE OF OPERATION: 10/05/2017 PROCEDURES: 1. PTCA stent RCA. 2. Intravascular ultrasound. 3. Left heart catheterization. 4. Selective coronary angiography. 5. Left ventriculogram. 6. Aortofemoral runoff. 7. Abdominal aortography. INDICATION: Angina, coronary artery disease, peripheral vascular disease, and claudication. PROCEDURE IN DETAIL: After informed consent was obtained and after a detailed description of risks, benefits as well as alternative therapies, the patient elected to proceed with angiogram and angioplasty. The right femoral area was prepped and draped in normal sterile fashion. Right femoral artery was cannulated via modified Seldinger technique with placement of 6-[place] sheath. All catheters exchanged through this sheath. FINDINGS: Abdominal aortography was performed. The catheter was pulled down for aortofemoral runoff. Abdominal aortography reveals no significant abdominal aortic disease, no dissection or aneurysm formation. No renal artery stenosis. RIGHT LEG: A. Iliac: The common internal and external iliacs are tortuous with calcification, but no flow-limiting stenosis. No stenosis greater than 20% to 30%. B. Femoral system: The common superficial and deep femoral have moderate irregularities, but no flow-limiting stenosis. No stenosis greater than 20%. C. Popliteal and infrapopliteal vessels are patent with good 3-vessel runoff to the foot. LEFT LEG: A. Iliac: The common internal and external iliacs are tortuous with calcification, but no flow-limiting stenosis. No stenosis greater than 20% to 30%. B. Femoral system: The common superficial and deep femoral have moderate irregularities, but no flow-limiting stenosis. No stenosis greater than 20%. C. Popliteal and infrapopliteal vessels are patent with good 3-vessel runoff to the foot. Left ventriculogram was performed in standard 30-degree SMALLWOOD view, reveals good cardiac wall motion throughout all segments. Overall ejection fraction estimated 60%. SELECTIVE CORONARY ANGIOGRAPHY: 1. Left main is with no significant angiographic disease. 2. Left anterior descending has 70% stenosis in the mid vessel with an 80% stenosis of the diagonal. 3. Left circumflex has moderate irregularities, but no flow-limiting stenosis. OPERATIVE REPORT [id number] ROBERTO HENSLEY 4. Right coronary artery has a greater than 70% stenosis in the mid vessel between the 2 previously placed stents. There is no significant in-stent restenosis of the 2 stents. This is confirmed by intravascular ultrasound. PTCA STENT OF THE RCA: The stent used is a 3.0 x 18 mm [place]. Result was 0% residual stenosis. OVERALL IMPRESSION: Successful percutaneous transluminal coronary angioplasty stent of the right coronary artery going from greater than 70% initial stenosis to 0% residual. PLAN: PTCA stent of the LAD in the near future. TRANSINT:[id number] Voice Confirmation ID: [id number] DOCUMENT ID: [id number] BRADY SIDDIQI MD at 1642 CC: [id number] DICTATION DATE: 10/05/17 1038 INVENTORY ASSOCIATE: 10/05/17 1158 [facility] CLI 10/06/17 [id number] [place] [address]
--- NOTE | ~2017-10-05 | HEMODYNAMI ---
PATIENT:ROBERTO HENSLEY MEDICAL RECORD: [id number] : 46 LOCATION:[facility] ADMISSION DATE: 10/05/17 Generatedon:10/05/201710:37 Patient name: ROBERTO HENSLEY Patient #: [id number] SSN: [id number] : 1950 Date of study: 10/05/2017 Page: Of Hemodynamic Procedure Report Patient Data Patient Demographics Procedure consent was obtained First Name: ROBERTO Gender: Female Last Name: : 1950 [facility] Initial: J Age: 67 year(s) Patient #: [id number] Race: Unknown SSN: [id number] Additional ID: [id number] Contact details [address]: [address] [place] [address] State: [place] City: [place] Zip code: [address] Past Medical History Allergies Allergen Reaction Date Comments Reported Other allergy 06/24/2017 Morphine Morphine 10/05/2017 Admission Admission Data Admission Date: 10/05/2017 Admission Time: 7:27 Admit Source: Other Lab Results Lab Result Date: 10/05/2017 Lab Result Time: 0:00 Biochemistry Name Units Result Min Max BUN mg/dl 18 --(---*)-- 7 18 Creatinine mg/dl 0.9 --(-*--)-- 0.6 1.3 CBC Name Units Result Min Max Hemoglobin g/dl 16.5 --(--*-)-- 13.5 17.5 Procedure Procedure Types Cath Procedure Diagnostic Procedure [facility] w/Coronaries FFR/IVUS Intra-Coronary IVUS Initial PCI Procedure Coronary Stent Coronary Stent Initial Peripheral Cath Diagnostic Procedure Cath Peripheral Rraix-Pjyvilo-Bik-Off Procedure Description Procedure Date Procedure Date: 10/05/2017 Procedure Start Time: 10:13 Procedure End Time: 10:36 Procedure Staff Name Function José Luis Anderson MD Performing Physician Ziyad Hernández RN Nurse Benoit Cabrales RT Scrub José Miguel Suit RT Monitor Procedure Data Cath Procedure Fluoroscopy Diagnostic fluoroscopy Total fluoroscopy Time: 4.1 time: 4.1 min min Diagnostic fluoroscopy Total fluoroscopy dose: 224 dose: 224 mGy mGy Contrast Material Contrast Material Type Amount (ml) Isovue 300 122 Entry Location Entry Primary Successful Side Size Upsize Upsize Entry Closure Succes sful Closure Location (Fr) 1 (Fr) 2 (Fr) Remarks Device Remarks Femoral Right 5 Fr 6 Fr Exoseal artery Short Diagnostic catheters Device Type Used For End Catheter Placement MULTIPACK Pigtail 5 Fr LV Angiography catheter MULTIPACK JL 4.0 5Fr Left Coronary catheter Angiography MULTIPACK 3DRC 5Fr Right Coronary catheter Angiography Procedure Complications No complications Procedure Medications Medication Administration Route Dosage 0.9% NaCl I.V. 100 ml Oxygen etCO2 Nasal cannula 2 l/min Heparin Flush Bag added to field 2 bags (1000units/500ml NS) Lidocaine 2% added to field 20 Versed I.V. 2 mg Fentanyl I.V. 100 mcg Versed I.V. 2 mg Fentanyl I.V. 100 mcg Heparin Bolus I.V. 4000 units Hemodynamics Rest HGB: 16.5 (g/dl) Heart Rate: 62 (bpm) Pressure Samples Time Site Value (mmHg) Purpose Heart Use Rate(bpm) 10:15 LV 95/47,69 Snapshot 77 Gradients Valve Time Site Site Mean SEP/DFP Peak To Heart Use 1 2 (mmHg) (sec/min) Peak Rate (mmHg) (bpm) Aortic 10:15 LV AO 70 Snapshots Pre Cath Intra NCS Post Cath Vital Signs Time Heart Resp SPO2 etCO2 NIBP (mmHg) Rhythm Pain Sedation Rate (ipm) (%) (mmHg) Status Level (bpm) 9:58:22 68 16 100 25.6 173/88(142) NSR 0 (11) 10(A) , No pain 10:03:07 60 15 99 33.2 152/78(128) NSR 0 (11) 10(A) , No pain 10:07:52 61 14 100 27.2 153/74(123) NSR 0 (11) 10(A) , No pain 10:12:40 62 14 99 29.4 143/71(101) NSR 0 (11) 10(A) , No pain 10:17:23 61 14 97 28.7 118/59(100) NSR 0 (11) 10(A) , No pain 10:22:04 63 14 98 40.8 123/62(107) NSR 0 (11) 9(A) , No pain 10:26:42 65 15 98 40 107/59(93) NSR 0 (11) 9(A) , No pain 10:31:52 64 16 99 37.7 126/68(101) NSR 0 (11) 10(A) , No pain Medications Time Medication Route Dose Verified Delivered Reason Notes Effectiveness by by 9:56:39 0.9% NaCl I.V. 100 Ziyad Ziyad Per physician ml Edgar Hernández RN RN 9:56:50 Oxygen etCO2 2 Ziyad Ziyad Per physician Nasal l/min Edgar Hernández cannula RN RN 9:57:04 Heparin Flush added 2 Ziyad Ziyad used for Bag to bags Edgar Hernández procedure (1000units/500ml field RN RN NS) 9:57:21 Lidocaine 2% added 20ml Ziyad Ziyad for local to vial Edgar Hernández anesthetic field RN RN 10:11:15 Versed I.V. 2 mg Ziyad Ziyad for sedation Edgar Hernández RN RN 10:11:25 Fentanyl I.V. 100 Ziyad Ziyad for sedation mcg Edgar Hernández RN RN 10:12:12 Versed I.V. 2 mg Ziyad Ziyad for sedation Edgar Hernández RN RN 10:13:45 Fentanyl I.V. 100 Ziyad Ziyad for sedation mcg Edgar Hernández RN RN 10:22:10 Heparin Bolus I.V. 4000 Ziyad Ziyad for units Edgar Hernández anticoagulation RN key entry operator Log Time Note 9:23:25 Admit Source: Other 9:23:59 Diagnostic Cath status Elective 9:24:02 José Miguel Canchola RT(R) sent for patient. Start room use. 9:24:03 Time tracking: Regular hours (M-F 7:00 - 5:00) 9:24:08 Plan of Care:Hemodynamics will remain stable., Cardiac rhythm will remain stable., Comfort level will be maintained., Respiratory function will remain adequate., Patient/ family verbilizes understanding of procedure., Procedure tolerated without complication., Recovers from procedure without complications.. 9:25:16 Lab Result : BUN 18 mg/dl 9:25:16 Lab Result : Hemoglobin 16.5 g/dl 9:25:16 Lab Result : Creatinine 0.9 mg/dl 9:25:21 Lab results completed and on chart. 9:42:33 Patient received from Pre/Post Procedure Room to CCL 1 Alert and oriented. Tansferred to table in Supine position. 9:42:35 Warm blankets applied, and lidya hugger turned on for patient comfort. 9:42:35 Correct patient and procedure confirmed by team. 9:42:36 Signed procedure consent form obtained from patient. 9:42:37 ECG and BP/O2 sat monitors applied to patient. 9:42:39 Pre-procedure instructions explained to patient. 9:42:40 Pre-op teaching completed and patient verbalized understanding. 9:42:40 Family in waiting room. 9:42:42 Patient NPO since Midnight. 9:51:41 Vital chart was started 9:51:42 Baseline sample Acquired. 9:51:45 Rhythm: sinus rhythm 9:51:46 Full Disclosure recording started 9:52:02 H&P Date Dictated: 10/04/2017 Within 30 days and on chart.. 9:52:09 Patient allergic to Morphine 9:52:11 Is the patient allergic to Iodine/contrast media? No. 9:52:16 Is patient on blood thinner?Yes 9:52:20 ACC The patient was administered the following blood thiners within the last 24 hours: ACCAspirin, ACCPlavix 9:52:23 Patient diabetic? No. 9:52:28 ----Pre-sedation anethsthesia assessment.---- 9:52:30 Previous problem with sedation/anesthesia? No ? 9:52:32 Snore? Yes 9:52:34 Sleep apnea? No 9:52:36 Deviated septum? No 9:52:38 Opens mouth fully? Yes 9:52:40 Sticks out tongue? Yes 9:52:48 Airway obstruction? Yes COPD 9:52:53 Dentures? Yes OUT 9:52:57 Pre procedure: right dorsailis pedis pulse 1+ Palpable, but thready & weak; easily obliterated 9:53:01 Patient pain scale 0/10 ?. 9:53:09 IV patent on arrival in left antecubital with 0.9% NaCl at 10ml/hr. 9:53:57 Right groin area was prepped with chlora-prep and draped in sterile fashion 9:53:58 Alarms reviewed by R. N. 9:53:58 Sharps counted by scrub and verified by R.N. 9:56:39 0.9% NaCl 100 ml I.V. was administered by Ziyad Hernández RN; Per physician; 9:56:50 Oxygen 2 l/min etCO2 Nasal cannula was administered by Ziyad Hernández RN; Per physician; 9:57:04 Heparin Flush Bag (1000units/500ml NS) 2 bags added to field was administered by Ziyad Hernández RN; used for procedure; 9:57:21 Lidocaine 2% 20ml vial added to field was administered by Ziyad Hernández RN; for local anesthetic; 10:05:11 Physician paged 10:06:17 Zero performed for pressure channel P1 10:09:44 Physician arrived 10:09:44 --------ALL STOP TIME OUT------ 10:09:45 Final Timeout: patient, procedure, and site verified with staff and physician. All members of the team are in agreement. 10:09:47 Right groin site verified by team. 10:09:51 Physical assessment completed. ASA score P 2 - A patient with mild systemic disease as per José Luis Anderson MD. 10:09:55 Sedation plan: IV Moderate Sedation Medication:Versed, Fentanyl 10:10:34 Use device set Femoral Dx 10:10:38 ACIST Syringe (27038) opened to sterile field. 10:10:38 Bag Decanter () opened to sterile field. 10:10:39 Medline Cath Pack ([id number]) opened to sterile field. 10:10:40 DIAGNOSTIC WIRE .035 260cm J wire (425051) opened to sterile field. 10:10:42 ACIST Hand Control (90256) opened to sterile field. 10:10:42 ACIST Manifold (11963) opened to sterile field. 10:10:43 DIAGNOSTIC Multipack 5Fr catheter set (WN7050) opened to sterile field. 10:10:44 Tegaderm 4 x 4 (1626W) opened to sterile field. 10:10:46 PERCUTANEOUS ENTRY 19GA needle opened to sterile field. 10:10:48 SHEATH Prelude 5Fr 0.035 ([id number]-9T-[id number]) opened to sterile field. 10:11:15 Versed 2 mg I.V. was administered by Ziyad Hernández RN; for sedation; 10:11:25 Fentanyl 100 mcg I.V. was administered by Ziyad Hernández RN; for sedation; 10:12:12 Versed 2 mg I.V. was administered by Ziyad Hernández RN; for sedation; 10:12:57 Procedure started. 10:13:04 Local anesthetic to right femoral artery with Lidocaine 2% by José Luis Anderson MD.INITIAL ACCESS ONLY 10:13:14 A 5 Fr sheath was inserted into the Right Femoral artery 10:13:45 Fentanyl 100 mcg I.V. was administered by Ziyad Hernández RN; for sedation; 10:15:05 A MULTIPACK Pigtail 5 Fr catheter was advanced over the wire and used for LV Angiography. 10:16:03 EF : 60 % 10:16:07 LV gram done using SMALLWOOD 10:16:09 LV angiography performed. 10:16:16 Abdominal angiogram w/ runoff was performed. 10:16:18 Left leg runoff performed. 10:16:19 Right leg runoff performed. 10:16:31 Procedure type changed to Cath procedure, Diagnostic procedure, LHC, LHC w/Coronaries, FFR/IVUS, Intra-Coronary IVUS Initial, PCI procedure, Coronary Stent, Coronary Stent Initial, Peripheral Cath Diagnostic Procedure, Cath Peripheral, Sifae-Zxqudva-Jyt-Off 10:16:57 Catheter exchanged over wire. 10:17:25 Tegaderm 4 x 4 (1626W) opened to sterile field. 10:17:31 A MULTIPACK JL 4.0 5Fr catheter was advanced over the wire and used for Left Coronary Angiography. 10:18:23 LCA angiography performed. 10:18:27 Catheter exchanged over wire. 10:18:33 A MULTIPACK 3DRC 5Fr catheter was advanced over the wire and used for Right Coronary Angiography. 10:19:04 RCA angiography performed. 10:19:28 Catheter removed. 10:20:21 CHOICE PT Extra Support 182cm wire ([id number]) opened to sterile field. 10:20:21 INFLATOR Merit BasixCompak (RO3477) opened to sterile field. 10:20:22 SHEATH 6Fr Prelude ([id number]) opened to sterile field. 10:20:23 GUIDE 6FR 3DRC catheter ([id number]) opened to sterile field. 10:20:24 [place] IVUS Catheter (38535L) opened to sterile field. 10:20:33 Sheath upsized to a 6 Fr Short. 10:20:44 6 Fr 3DRC guide catheter was inserted over the wire 10:20:51 CPTES wire advanced. 10:22:10 Heparin Bolus 4000 units I.V. was administered by Ziyad Hernández RN; for anticoagulation; 10:22:10 IVUS catheter advanced over wire. 10:22:12 IVUS pass to RCA lesion performed. 10:25:25 IVUS catheter removed over wire. 10:27:25 Place stent Inflation Number: 1 A ORI RX 3.0 x 18 stent ([id number]) was prepped and advanced across the Mid RCA. The stent was deployed at 15 INGRIS for 0:20 (min:sec). 10:30:51 Inflation number: 2 The stent balloon was then re-inflated across the Mid RCA to 19 INGRIS for 0:18 (min:sec). 10:31:10 Stent catheter was removed intact over wire. 10:31:11 Wire removed. 10:31:15 Guide catheter removed. 10:31:39 Sheath removed intact; hemostasis achieved with Exoseal to the Right Femoral artery. 10:31:47 Contrast amount:Isovue 300 122ml. 10:31:49 Procedure ended.(Physican Out) 10:32:58 Fluoroscopy time 04.10 minutes. 10:33:05 Flurop Dose total: 224 10:33:05 Fluoroscopy dose: 224 mGy 10:33:07 Sharps counted by scrub and verified by R.N. 10:33:08 Insertion/operative site no bleeding no hematoma. 10:33:11 Post-op/insertion site Right Femoral artery dressed using a 4 x 4 and Tegaderm. 10:33:15 Post right femoral artery:stable 10:33:27 Post Procedure Pulses reassessed and unchanged 10:33:36 Post procedure: right dorsailis pedis pulse 1+ Palpable, but thready & weak; easily obliterated. 10:33:41 Post procedure rhythm: sinus rhythm 10:33:49 Post procedure instruction explained to patient.Patient verbalizes understanding. 10:34:01 Procedure and supply charges have been captured, reviewed, submitted and are correct. 10:34:41 EXOSEAL 6Fr (EX600) opened to sterile field. 10:35:17 Procedure Complication : No complications 10:35:24 Vital chart was stopped 10:36:11 See physician's report for complete and final results. 10:36:14 Report given to PCU. 10:36:17 Patient transfered to PCU with Bed. 10:36:19 Procedure ended. 10:36:19 Full Disclosure recording stopped 10:36:23 End room use (Document Last) Intervention Summary Intervention Notes Time ActionType Lesion and Equipment Used Action# Pressure Duration Attributes 10:27:25 Place stent Mid RCA ORI RX 3.0 x 1 15 00:20 18 stent ([id number]) 10:30:51 Reinflate Mid RCA ORI RX 3.0 x 2 19 00:18 stent 18 stent balloon ([id number]) Device Usage Item Name Manufacture Quantity Catalog Number Hospital Part Current Minimal Lot# / Charge Number Stock Stock Serial# Code ACIST Syringe Acist 1 [id number] 199898 [id number] 20 (89446) Medical [employer] Inc Bag Decanter Microtek 1 2001S [id number] 28445 375860 5 (2001S) Medical Inc. Medline Cath Cardinal 1 [id number] 406828 68692 426412 5 Pack Health ([id number]) DIAGNOSTIC WIRE [place] 1 827589 676326 296338 795420 30 .035 260cm J wire (945047) ACIST Hand Acist 1 78317 145761 118923 664163 5 Control (61968) [employer] Systems Inc ACIST Manifold Acist 1 04132 558071 718299 214137 5 (73218) Medical Systems Inc DIAGNOSTIC Cardinal 1 [id number] 740608 32451 115845 30 Multipack 5Fr Health catheter set ([id number]) Tegaderm 4 x 4 3M 2 1626W 012434 065987 528395 5 (1626W) PERCUTANEOUS Cook Medical 1 U79673 190960 424585 5 ENTRY 19GA needle SHEATH Prelude Merit 1 [id number]-[id number] 056401 085635 918893 5 5Fr 0.035 Medical ([id number]) MULTIPACK Cardinal 1 869077 5 Pigtail 5 Fr Health catheter MULTIPACK JL Cardinal 1 [id number] 5 4.0 5Fr Health catheter MULTIPACK 3DRC Cardinal 1 605284 5 5Fr catheter Health CHOICE PT Extra [place] 1 [id number] 418239 323156 079478 5 Support 182cm Scientific wire ([id number]) INFLATOR Merit Merit 1 HW9959 193449 811333 811403 15 BasixCompak Medical (HY3303) SHEATH 6Fr Merit 1 [id number] 041506 770487 237699 5 Prelude Medical ([id number]) GUIDE 6FR 3DRC Medtronic 1 [id number] 375060 105832 759832 1 catheter ([id number]) [place] 1 [id number] 454449 633875 725713 8 [place] IVUS Catheter (91347O) ORI RX 3.0 x Medtronic 1 [id number] 826997 1575823 750118 5 [id number] 18 stent ([id number]) EXOSEAL 6Fr Cardinal 1 EX600 516403 370465 459794 10 (EX600) Health Signature Audit [place] Stage Time Signature Unsigned Intra-Procedure 10/05/2017 José Miguel Canchola RT([place]) 10:36:58 AM Signatures Monitor : José Miguel Canchola RT Signature : Date : Time : [id number] [place] [address]
--- NOTE | ~2017-10-05 | DS ---
PATIENT:ROBERTO HENSLEY :46 MEDICAL RECORD: [id number] DISCHARGE SUMMARY ADMISSION DATE: 10/05/17 DISCHARGE DATE: 10/06/17 DATE OF SERVICE: 10/06/2017. DIAGNOSES: 1. Angina. 2. Coronary artery disease. 3. Percutaneous transluminal coronary angioplasty stent left anterior descending and right coronary artery this admission. HOSPITAL COURSE: Mrs. Hensley presents with anginal symptomatology, found to have significant disease of the LAD and RCA, underwent successful PTCA stent of above territories, was discharged home with the addition of aspirin and Plavix to her medical regimen. She will follow up with [facility] in [facility] month. TRANSINT:[id number] Voice Confirmation ID: [id number] DOCUMENT ID: [id number] BRADY SIDDIQI MD at 1643 CC: [id number] DICTATION DATE: 10/06/17 1225 HYDRAULIC ELEVATOR CONSTRUCTOR: 10/06/17 1320 DEP CLI 10/06/17 [id number] [place] [address]
--- NOTE | ~2017-10-05 | HEMODYNAMI ---
PATIENT:ROBERTO HENSLEY MEDICAL RECORD: [id number] : 46 LOCATION:[facility] D.[address] [facility]# [id number] ADMISSION DATE: 10/05/17 Generatedon:10/06/201712:30 Patient name: ROBERTO HENSLEY Patient #: [id number] SSN: [id number] : 1950 Date of study: 10/06/2017 Page: Of Hemodynamic Procedure Report Patient Data Patient Demographics Procedure consent was obtained First Name: ROBERTO Gender: Female Last Name: : 1950 [facility] Initial: J Age: 67 year(s) Patient #: [id number] Race: Unknown SSN: [id number] Additional ID: [id number] Contact details [address]: [address] [place] [address] State: [place] City: [place] Zip code: [address] Past Medical History Allergies Allergen Reaction Date Comments Reported Other allergy 06/24/2017 Morphine Morphine 10/05/2017 Morphine 10/06/2017 Admission Admission Data Admission Date: 10/05/2017 Admission Time: 7:27 Admit Source: Other Room #: D.2115 Height (in.): 66 BSA: 1.71 (m2) Height (cm.): 167.64 BMI: 22.27 (kg/m2) Weight (lbs.): 138 Weight (kg.): 62.6 Lab Results Lab Result Date: 10/05/2017 Lab Result Time: 0:00 Biochemistry Name Units Result Min Max BUN mg/dl 18 --(---*)-- 7 18 Creatinine mg/dl 0.9 --(-*--)-- 0.6 1.3 CBC Name Units Result Min Max Hemoglobin g/dl 16.5 --(--*-)-- 13.5 17.5 Procedure Procedure Types Cath Procedure PCI Procedure Coronary Stent Coronary Stent Initial Coronary Stent Additional Procedure Description Procedure Date Procedure Date: 10/06/2017 Procedure Start Time: 12:15 Procedure End Time: 12:25 Procedure Staff Name Function José Luis Anderson MD Performing Physician Jo Ann Dietz RT Monitor Huyen Wagner RT Scrub Abhishek Bernard RN Restaurant Front Manager Anne Gill RN Nurse Procedure Data Cath Procedure Fluoroscopy Diagnostic fluoroscopy Total fluoroscopy Time: 2.1 time: 2.1 min min Diagnostic fluoroscopy Total fluoroscopy dose: 141 dose: 141 mGy mGy Contrast Material Contrast Material Type Amount (ml) Isovue 300 61 Entry Location Entry Primary Successful Side Size Upsize Upsize Entry Closure Succes sful Closure Location (Fr) 1 (Fr) 2 (Fr) Remarks Device Remarks Femoral Left 6 Fr Exoseal artery Short Estimated blood loss: 10 ml Procedure Complications No complications Procedure Medications Medication Administration Route Dosage Oxygen etCO2 Nasal cannula 2 l/min Lidocaine 2% added to field 20 Heparin Flush Bag added to field 2 bags (1000units/500ml NS) 0.9% NaCl I.V. 100 ml/hr Versed I.V. 1 mg Fentanyl I.V. 50 mcg Versed I.V. 1 mg Fentanyl I.V. 50 mcg Heparin Bolus I.V. 4000 units Versed I.V. 1 mg Fentanyl I.V. 50 mcg Nitroglycerin IC/IA I.C. 200 mcg Hemodynamics Rest BSA: 1.71 (m2) HGB: 16.5 (g/dl) O2 Consumption: Estimated: 154.4 (ml/min) O2 Con sumption indexed: Estimated:90.29 (ml/min/m) Heart Rate: 64 (bpm) Snapshots Pre Cath Intra NCS Post Cath Vital Signs Time Heart Resp SPO2 etCO2 NIBP (mmHg) Rhythm Pain Sedation Rate (ipm) (%) (mmHg) Status Level (bpm) 11:59:04 76 33 98 0 No Cuff NSR 0 (11) 10(A) , No pain 12:04:02 68 15 100 0 Measuring NSR 0 (11) 10(A) , No pain 12:07:57 64 21 100 29.4 157/63(129) NSR 0 (11) 10(A) , No pain 12:14:39 67 17 96 11.3 140/69(111) NSR 0 (11) 9(A) , No pain 12:19:22 70 13 97 0 139/70(124) NSR 0 (11) 9(A) , No pain 12:23:55 86 16 97 0 121/68(83) NSR 0 (11) 9(A) , No pain 12:27:56 68 14 96 8.2 119/53(86) NSR 0 (11) 10(A) , No pain Medications Time Medication Route Dose Verified Delivered Reason Notes Effectiveness by by 12:00:23 Oxygen etCO2 2 José Luis Ziyad used for Nasal l/min Justin Hernández procedure cannula RN 12:00:32 Lidocaine 2% added 20ml José Luis José Luis for local to vial Justin Anderson MD anesthetic field 12:00:40 Heparin Flush added 2 José Luis José Luis used for Bag to bags Justin Anderson MD procedure (1000units/500ml field NS) 12:00:53 0.9% NaCl I.V. 100 José Luis Ziyad Per physician ml/hr Justin Hernández RN 12:08:05 Fentanyl I.V. 50 José Luis Ziyad for sedation mcg Justin Hernnádez RN 12:08:59 Versed I.V. 1 mg José Luis Ziyad for sedation Justin Hernández RN 12:11:32 Versed I.V. 1 mg José Luis Ziyad for sedation Justin Hernández RN 12:11:35 Fentanyl I.V. 50 José Luis Ziyad for sedation mcg Justin Hernández RN 12:16:42 Heparin Bolus I.V. 4000 José Luis Ziyad for verif ied units Justin Hernández anticoagulation with dr JAELYN anderson 12:20:03 Versed I.V. 1 mg José Luis Ziyad for sedation Justin Hernández RN 12:20:07 Fentanyl I.V. 50 José Luis Ziyad for sedation mcg Justin Hernández RN 12:21:51 Nitroglycerin I.C. 200 José Luis José Luis for IC/IA mcg Justin Anderson MD vasodilation Procedure Log Time Note 11:40:07 Diagnostic Cath Status : Elective 11:41:32 Jo Ann Dietz RT(R) sent for patient. Start room use. 11:41:32 Time tracking: Regular hours (M-F 7:00 - 5:00) 11:41:37 Plan of Care:Hemodynamics will remain stable., Cardiac rhythm will remain stable., Comfort level will be maintained., Respiratory function will remain adequate., Patient/ family verbilizes understanding of procedure., Procedure tolerated without complication., Recovers from procedure without complications.. 11:51:06 Patient received from Med II to CCL 1 Alert and oriented. Tansferred to table in Supine position. 11:51:07 Warm blankets applied, and lidya hugger turned on for patient comfort. 11:51:08 Correct patient and procedure confirmed by team. 11:51:09 Signed procedure consent form obtained from patient. 11:51:12 ECG and BP/O2 sat monitors applied to patient. 11:58:13 Vital chart was started 11:58:15 Baseline sample Acquired. 11:59:07 Rhythm: sinus rhythm 11:59:12 Full Disclosure recording started 11:59:44 H&P Date Dictated: 10/04/2017 Within 30 days and on chart.. 11:59:52 Pre-procedure instructions explained to patient. 11:59:53 Pre-op teaching completed and patient verbalized understanding. 12:00:17 Patient Weight : 138 lbs 12:00:23 Oxygen 2 l/min etCO2 Nasal cannula was administered by Ziyad Hernández RN; used for procedure; 12:00:24 Patient Height : 66 inches 12:00:29 Family in patients room. 12:00:32 Lidocaine 2% 20ml vial added to field was administered by José Luis Anderson MD; for local anesthetic; 12:00:40 Heparin Flush Bag (1000units/500ml NS) 2 bags added to field was administered by José Luis Anderson MD; used for procedure; 12:00:51 Patient NPO since Breakfast. 12:00:53 0.9% NaCl 100 ml/hr I.V. was administered by Ziyad Hernández RN; Per physician; 12:01:41 Patient allergic to Morphine 12:01:53 Is patient on blood thinner?Yes 12:01:56 ACC The patient was administered the following blood thiners within the last 24 hours: ACCPlavix 12:01:58 Patient diabetic? No. 12:02:04 Patient not . Patient is over age 55. 12:02:05 ----Pre-sedation anethsthesia assessment.---- 12:02:08 Previous problem with sedation/anesthesia? No ? 12:02:10 Snore? Yes 12:02:12 Sleep apnea? No 12:02:13 Deviated septum? No 12:02:14 Opens mouth fully? Yes 12:02:15 Sticks out tongue? Yes 12:02:23 Airway obstruction? Yes COPD 12:02:30 Dentures? Yes OUT 12:02:42 Pre procedure: left dorsailis pedis pulse 2+ Normal; easily identifiable; not easily obliterated 12:02:47 Patient pain scale 0/10 ?. 12:03:36 IV left forearm D/C'd due to infiltration. 12:08:05 Fentanyl 50 mcg I.V. was administered by Ziyad Hernández RN; for sedation; 12:08:16 IV started by Abhishek Bernard RN inleft hand with a 22 gauge IV catheter with 0.9% NaCl at KVO. 12:08:23 Left groin area was prepped with chlora-prep and draped in sterile fashion 12:08:25 Alarms reviewed by R. N. 12:08:26 Sharps counted by scrub and verified by R.N. 12:08:28 Physician arrived 12::28 --------ALL STOP TIME OUT------ 12:08:29 Final Timeout: patient, procedure, and site verified with staff and physician. All members of the team are in agreement. 12:08:32 Left groin site verified by team. 12:08:44 Physical assessment completed. ASA score P 2 - A patient with mild systemic disease as per José Luis Anderson MD. 12:08:51 Sedation plan: IV Moderate Sedation Medication:Versed, Fentanyl 12:08:59 Versed 1 mg I.V. was administered by Ziyad Hernández RN; for sedation; 12:09:29 Use device set CATH PACK 12:09:30 ACIST Syringe (43738) opened to sterile field. 12:09:31 ACIST Hand Control (56342) opened to sterile field. 12:09:31 ACIST Manifold (19733) opened to sterile field. 12:09:32 Medline Cath Pack ([id number]) opened to sterile field. 12:09:33 Bag Decanter (2002) opened to sterile field. 12:09:33 DIAGNOSTIC WIRE .035 260cm J wire (986650) opened to sterile field. 12:10:01 SHEATH 6FR Sumner (MOG413) opened to sterile field. 12:10:01 INFLATOR Merit BasixCompak (MM7723) opened to sterile field. 12:11:32 Versed 1 mg I.V. was administered by Ziyad Hernández RN; for sedation; 12:11:35 Fentanyl 50 mcg I.V. was administered by Ziyad Hernández RN; for sedation; 12:15:00 Zero performed for pressure channel P1 12:15:06 Procedure started. 12:15:08 Zero performed for pressure channel P1 12:15:20 Local anesthetic to left femerol artery with Lidocaine 2% by José Luis Anderson MD.INITIAL ACCESS ONLY 12:16:03 A 6 Fr Short sheath was inserted into the Left Femoral artery 12:16:11 GUIDE 6FR XBLAD 3.5 catheter ([id number]) opened to sterile field. 12:16:24 6 Fr XBLAD 3.5 guide catheter was inserted over the wire 12:16:42 Heparin Bolus 4000 units I.V. was administered by Ziyad Hernández RN; for anticoagulation; verified with dr anderson 12:17:02 CHOICE PT Extra Support 182cm wire ([id number]) opened to sterile field. 12:17:11 CHOICE ES 182 wire advanced. 12:18:32 Place stent Inflation Number: 1 A ORI RX 2.0 x 15 stent ([id number]) was prepped and advanced across the 1st Diag. The stent was deployed at 13 INGRIS for 0:10 (min:sec). 12:18:42 Wire redirected to LAD. 12:18:44 Stent catheter was removed intact over wire. 12:20:02 Place stent Inflation Number: 1 A ORI RX 3.5 x 08 stent ([id number]) was prepped and advanced across the Mid LAD. The stent was deployed at 13 INGRIS for 0:10 (min:sec). 12:20:03 Versed 1 mg I.V. was administered by Ziyad Hernández RN; for sedation; 12:20:07 Fentanyl 50 mcg I.V. was administered by Ziyad Hernández RN; for sedation; 12:20:28 Stent catheter was removed intact over wire. 12:21:51 Nitroglycerin IC/IA 200 mcg I.C. was administered by José Luis Anderson MD; for vasodilation; 12:22:59 EXOSEAL 6Fr (EX600) opened to sterile field. 12:23:14 Sheath removed intact; hemostasis achieved with Exoseal to the Left Femoral artery. 12:23:16 Procedure ended.(Physican Out) 12:23:38 Fluoroscopy time 02.10 minutes. 12::42 Fluoroscopy dose: 141 mGy 12:23:42 Flurop Dose total: 141 12:23:44 Contrast amount:Isovue 300 61ml. 12:23:46 Sharps counted by scrub and verified by R.N. 12:23:49 Post-op/insertion site Left Femoral artery dressed using a 4 x 4 and Tegaderm. 12:23:55 Post left femerol artery:stable, soft, clean and dry 12:24:41 Post-procedure physical assessment completed. ASA score P 2 - A patient with mild systemic disease as per José Luis Anderson MD. 12::44 Post procedure rhythm: sinus rhythm 12::46 Estimated blood loss: 10 ml 12:24:48 Post procedure instruction explained to patient.Patient verbalizes understanding. 12:24:48 Patient needs reinforcement of post procedure teaching. 12:25:05 Procedure type changed to Cath procedure, PCI procedure, Coronary Stent, Coronary Stent Initial, Coronary Stent Additional 12:25:20 Procedure and supply charges have been captured, reviewed, submitted and are correct. 12:25:22 Procedure Complication : No complications 12:25:24 Vital chart was stopped 12:25:25 See physician's report for complete and final results. 12:25:26 Report given to Pre/Post Procedure Room. 12:25:29 Patient transfered to Pre/Post Procedure Room with Bed. 12:25:30 Procedure ended. 12:25:30 Full Disclosure recording stopped 12:25:35 End room use (Document Last) Intervention Summary Intervention Notes Time ActionType Lesion and Equipment Used Action# Pressure Duration Attributes 12:18:32 Place stent 1st Diag ORI RX 2.0 x 1 13 00:10 15 stent ([id number]) 12:20:02 Place stent Mid LAD ORI RX 3.5 x 1 13 00:10 08 stent ([id number]) Device Usage Item Name Manufacture Quantity Catalog Number Hospital Part Current M inimal Lot# / Charge Number Stock Stock Serial# Code ACIST Syringe Acist 1 36558 608995 459490 620912 2 0 (53020) [employer] ACIST Hand Acist 1 10827 405952 493276 008192 5 Control Medical (75269) Systems Inc ACIST Manifold Acist 1 57971 839947 703234 732862 5 (01633) Medical Systems Inc Medline Cath Cardinal 1 [id number] 385300 35454 844008 5 Pack Health ([id number]) Bag Decanter Microtek 1 2001S 530037 48332 038861 5 (2001S) Medical Inc. DIAGNOSTIC St Luis 1 532429 160496 525252 032069 3 0 WIRE .035 260cm J wire (987833) SHEATH 6FR Terumo 1 OOG007 938678 820224 147524 4 0 Sumner (FJB306) INFLATOR Merit Merit 1 BO9039 041939 851733 182086 1 5 Sevcon (XD7666) GUIDE 6FR Cardinal 1 [id number] 902701 963713 779187 1 0 XBLAD 3.5 Health catheter ([id number]) CHOICE PT [place] 1 [id number] 411341 587376 856460 5 Extra Support Scientific 182cm wire ([id number]) ORI RX 2.0 x Medtronic 1 [id number] 521066 6427104 252831 5 [id number] 15 stent ([id number]) ORI RX 3.5 x Medtronic 1 [id number] 105699 7795094 960519 5 [id number] 08 stent ([id number]) EXOSEAL 6Fr Cardinal 1 EX600 392292 895550 093818 1 0 (EX600) Health Signature Audit [place] Stage Time Signature Unsigned Intra-Procedure 10/06/2017 Jo Ann Dietz 12:30:22 PM RT(R) Signatures Monitor : Jo Ann Dietz Signature : RT Date : Time : [address] [place] [address]
--- NOTE | ~2017-10-05 | OP ---
PATIENT NAME: ROBERTO HENSLEY MEDICAL RECORD: [id number] :46 LOCATION:D.CAT ADMISSION DATE: SURGEON: BRADY SIDDIQI MD DATE OF OPERATION: 10/06/2017 PROCEDURES: 1. PTCA and stent, LAD. 2. PTCA and stent, LAD diagonal. 3. Selective coronary angiography. INDICATION: Angina and coronary disease. PROCEDURE IN DETAIL: After informed consent was obtained and after detailed description of risks and benefits as well as alternative therapies, the patient elected to proceed with angiogram and angioplasty. The left femoral area was prepped and draped in normal sterile fashion. The left femoral artery was cannulated via modified Seldinger technique with placement of 6-Faroese sheath. All catheters were exchanged through the sheath. FINDINGS: The left anterior descending has 80% stenosis and diagonal with 80% to 90% stenosis. The diagonal was addressed with a 2.0 x 15-mm [place], the LAD with a 3.5 x 8-mm [place]. Result was 0% residual stenosis. OVERALL IMPRESSION: Successful PTCA and stent of the LAD and diagonal going from 80% to 90% initial stenosis to 0% residual. TRANSINT:[id number] Voice Confirmation ID: [id number] DOCUMENT ID: [id number] BRADY SIDDIQI MD at 1643 CC: [id number] DICTATION DATE: 10/06/17 1227 PRIVATE INVESTIGATOR SURVEILLANCE: 10/06/17 1313 DEP CLI 10/06/17 [place] [id number]
[2017-10-05] MEDS ORDERED: PROTONIX40 MG PO (07:43)
[2017-10-05 07:56] VITALS: BP 165/87; BMI 22.3
[2017-10-05 08:19] LABS: ANION GAP 12.6 mmol/L (8-16); CALCIUM 8.9 mg/dL (8.5-10.1); CARBON DIOXIDE 25.4 mmol/L (21.0-32.0); CREATININE - SERUM 0.9 mg/dL (0.6-1.3)
[2017-10-05 08:43] LABS: BASOPHILS 1.4 % (0-2); EOSINOPHILS 3.2 % (0-7); HEMATOCRIT 48.2 % (36.0-48.0); HEMOGLOBIN 16.5 g/dL (12-16); IMMATURE GRANULOCYTES 0.5 % (0-5); LYMPHOCYTES 18.8 % (15-50); MCH 31.5 pg (26.0-34.0); MCHC 34.2 g/dL (31.0-37.0); MEAN PLATELET VOLUME 10.1 fL (7.4-10.4); NEUTROPHILS 66.1 % (40-80); PLATELET COUNT 267 10x3/uL (130-400); RBC 5.24 10x6/uL (4.00-5.40); RDW 14.3 % (11.5-14.5)
[2017-10-05 11:08] VITALS: BP 154/77; Ht 167.6 cm; Wt 62.7 kg
[2017-10-05 20:19] VITALS: BP 105/53
[2017-10-06] VITALS: BP 154/66
[2017-10-06 00:50] VITALS: BP 112/49
[2017-10-06 04:00] VITALS: BP 113/49
[2017-10-06 08:06] VITALS: BP 122/54
[2017-10-06 11:40] VITALS: BP 133/56
== END 2017-10-06 16:25 | disposition home or self-care (01) ==
LOC: D.CATH 07:27 → D.M2 10:43 → D.CLR 10-06 13:20 → D.CATH 10-06 16:25
PROVIDERS: Internal Medicine Interventional Cardiology
DX: I25.119 Atherosclerotic heart disease of native coronary artery with unspecified angina pectoris (principal); Z01.812 Encounter for preprocedural laboratory examination; I70.219 Atherosclerosis of native arteries of extremities with intermittent claudication, unspecified extremity
CPT/HCPCS: 92978; 93458; C9600 ×2; C9601

== ENCOUNTER 2017-11-11 12:46 | Observation (INO) | payer MEDICARE, OTHER ==
[~2017-11-11] VITALS: Ht 167.6 cm; Wt 61.5 kg
[2017-11-11] VITALS (7 sets, daily range): BP systolic 114–138; BP diastolic 51–70
--- NOTE | ~2017-11-11 | ST ---
PATIENT:ROBERTO HENSLEY MEDICAL RECORD: [id number] SEX: F LOCATION:[place] [address] ORDER #: ADMISSION DATE: 11/11/17 AGE OF PATIENT: 67 REFERRING PHYSICIAN: INTERPRETING PHYSICIAN: MINNIE PAYTON MD DATE OF SERVICE: The patient underwent a Lexiscan directed stress test, showed no evidence of ischemia, LV dysfunction, morphologic changes. Ejection fraction is well maintained at 66%. There are no areas of photopenia. IMPRESSION: This is a negative stress test for ischemic changes with preserved LV systolic function. TRANSINT:[id number] Voice Confirmation ID: [id number] DOCUMENT ID: [id number] MINNIE PAYTON MD at 1348 CC: [id number] DICTATION DATE: 11/13/17 1258 DEVELOPMENTAL THERAPIST: 11/14/17 0829 DIS IN 11/13/17 [place] [address] [place] [address]
--- NOTE | ~2017-11-11 | EC ---
PATIENT:ROBERTO HENSLEY DATE OF SERVICE: 11/11/17 SEX: F MEDICAL RECORD: [id number] DATE OF : [birth year] LOCATION:D. D.212 AGE OF PATIENT: 67 ADMISSION DATE: 11/11/17 REFERRING PHYSICIAN: INTERPRETING PHYSICIAN: MINNIE PAYTON MD ECHOCARDIOGRAM REPORT ECHO CHARGES 4 ECHO COMPLETE Date: 11/12/17 CLINICAL DIAGNOSIS: CP ECHOCARDIOGRAPHIC MEASUREMENTS (adult normal given) AC root (d.<3.7cm) 2.9 cm LV Septum d (<1.2 cm> 1.3 cm Valve Excursion 1.8 cm LV Septum (systole) 1.3 cm Left Atria (s.<4.0cm> 3.3 cm LVPW d(<1.2cm) 0.8 cm RV (d.<2.3cm) 2.1 cm LVPW (sytole) 0.9 cm LV diastole(<5.6CM) 4.4 cm MV E-F(>70mm/sec) cm LV systole 3.9 cm LVOT Diameter 2.0 cm MV exc.(>10mm) cm Est.ejection fraction (50-75%) % DOPPLER: LVIT cm/sec A 74 cm/sec E 44 cm/sec LA cm/sec RVSP 15.1 mmHg LVOT 102 cm/sec AOP1/2T 6.6 m/s Asc. Ao 128 cm/sec RVOT 65 cm/sec RA cm/sec PA 74 cm/sec AV Gradient Peak 4.0 mmHg AV Mean 2.8 mmHg AV Area cm MV Gradient Peak 3.0 mmHg MV Mean 1.4 mmHg MV Area cm COMMENTS: Vault Installer: Scar WHYTE Regrinder: 4 Dr. Payton TAPE# PACS Pericardial Effusion N DATE OF SERVICE: PROCEDURE: Transthoracic echocardiogram. FINDINGS: 1. Left ventricle shows mild concentric left ventricular hypertrophy. Inflow characteristics are consistent with diastolic dysfunction. Ejection fraction is 55%. 2. Left atrium is normal. 3. Aortic valve is normal. ECHOCARDIOGRAM REPORT [id number] ROBERTO HENSLEY 4. Mitral valve is normal. 5. Tricuspid valve is normal. 6. Right ventricle and right atrium are normal. 7. Pulmonic valve is normal. CONCLUSIONS: Normal echocardiogram for the patient's stated age with the exception of mild hypertensive heart disease. TRANSINT:[id number] Voice Confirmation ID: [id number] DOCUMENT ID: [id number] MINNIE PAYTON MD CC: [id number] DICTATION DATE: 11/13/17 1157 QUAL FIELD MANAGER: 11/13/17 1820 DIS IN 11/13/17 [facility] [address] [place] [id number]
[~2017-11-11 12:46] MED LIST changes: +PROTONIX40 MG PO
[2017-11-11] MEDS ORDERED: [UNRECOGNIZED DRUG - REMARK] (12:55)
[2017-11-11 13:54] LABS: BASOPHILS 0.9 % (0-2); EOSINOPHILS 3.2 % (0-7); HEMATOCRIT 43.1 % (36.0-48.0); HEMOGLOBIN 14.7 g/dL (12-16); IMMATURE GRANULOCYTES 0.6 % (0-5); LYMPHOCYTES 18.4 % (15-50); MCH 31.7 pg (26.0-34.0); MCHC 34.1 g/dL (31.0-37.0); MCV 93.1 fL (80.0-100.0); MEAN PLATELET VOLUME 9.4 fL (7.4-10.4); MONOCYTES 8.1 % (2-11); NEUTROPHILS 68.8 % (40-80); PLATELET COUNT 249 10x3/uL (130-400); RBC 4.63 10x6/uL (4.00-5.40); RDW 14.4 % (11.5-14.5); WBC 9.1 10x3/uL (4.8-10.8)
[2017-11-11 13:57] LABS: INR 0.95 (0.85-1.17); PROTIME 12.3 SECONDS (11.6-15.0)
[2017-11-11 14:04] LABS: ALBUMIN 3.8 g/dL (3.4-5.0); ALKALINE PHOSPHATASE 100 U/L (46-116); ALT (SGPT) 17 U/L (10-68); BILIRUBIN - TOTAL 0.55 mg/dL (0.2-1.3); CALC OSMOLALITY 272 mosm/kg (275-300); CALCIUM 9.5 mg/dL (8.5-10.1); CARBON DIOXIDE 29.3 mmol/L (21.0-32.0); CHLORIDE - SERUM 101 mmol/L (98-107); CREATININE - SERUM 1.2 mg/dL (0.6-1.3); GLUCOSE 102 mg/dL (74-106); POTASSIUM - SERUM 4.1 mmol/L (3.5-5.1); PROTEIN - SERUM 7.3 g/dL (6.4-8.2); SODIUM 136 mmol/L (136-145); UREA NITROGEN 14 mg/dL (7-18); eGFR NON AFRICAN AMERICAN 47 mL/min (90-120)
[2017-11-11 14:26] LABS: CREATINE KINASE 54 UL (21-215); TROPONIN-I < 0.017 ng/mL (0.000-0.060)
[2017-11-11 18:04] LABS: CKMB 0.8 U/L (0.0-3.6)
[2017-11-11 18:14] LABS: TROPONIN-I < 0.017 ng/mL (0.000-0.060)
[2017-11-11 20:00] LABS: APPEARANCE CLEAR (CLEAR); BILIRUBIN NEGATIVE (NEGATIVE); COLOR YELLOW (YELLOW); GLUCOSE NEGATIVE (NEGATIVE); KETONE NEGATIVE (NEGATIVE); NITRITE NEGATIVE (NEGATIVE); PROTEIN NEGATIVE (NEGATIVE); UROBILINOGEN NORMAL (NORMAL)
[2017-11-11 20:05] LABS: BACTERIA FEW /hpf (NONE SEEN); EPITHELIAL CELLS 0-5 /hpf (0-5); RED CELLS - URINE 0-5 /hpf (0-5); WHITE CELLS - URINE 0-5 /hpf (0-5)
[2017-11-12 00:20] VITALS: BP 108/51; BMI 22.3
[2017-11-12 04:59] VITALS: BP 127/48
[2017-11-12 06:55] LABS: BASOPHILS 0.3 % (0-2); EOSINOPHILS 3.8 % (0-7); HEMATOCRIT 43.2 % (36.0-48.0); HEMOGLOBIN 14.6 g/dL (12-16); IMMATURE GRANULOCYTES 0.8 % (0-5); LYMPHOCYTES 10.7 % (15-50); MCH 31.4 pg (26.0-34.0); MCHC 33.8 g/dL (31.0-37.0); MCV 92.9 fL (80.0-100.0); MEAN PLATELET VOLUME 9.8 fL (7.4-10.4); MONOCYTES 9.2 % (2-11); NEUTROPHILS 75.2 % (40-80); PLATELET COUNT 226 10x3/uL (130-400); RBC 4.65 10x6/uL (4.00-5.40); RDW 14.6 % (11.5-14.5)
[2017-11-12 07:22] LABS: CALCIUM 8.9 mg/dL (8.5-10.1); CREATININE - SERUM 0.9 mg/dL (0.6-1.3)
[2017-11-12 08:00] VITALS: BP 142/54
[2017-11-12 11:01] VITALS: Ht 167.6 cm; Wt 61.5 kg
[2017-11-12 21:10] VITALS: BP 140/63
[2017-11-13 04:30] VITALS: BP 140/61
[2017-11-13 05:33] LABS: BASOPHILS 0.8 % (0-2); EOSINOPHILS 3.7 % (0-7); HEMATOCRIT 42.6 % (36.0-48.0); HEMOGLOBIN 14.5 g/dL (12-16); IMMATURE GRANULOCYTES 0.6 % (0-5); LYMPHOCYTES 15.6 % (15-50); MCH 31.7 pg (26.0-34.0); MONOCYTES 8.4 % (2-11); NEUTROPHILS 70.9 % (40-80); PLATELET COUNT 228 10x3/uL (130-400); RBC 4.58 10x6/uL (4.00-5.40); RDW 14.2 % (11.5-14.5); WBC 10.4 10x3/uL (4.8-10.8)
[2017-11-13 05:39] LABS: CALC OSMOLALITY 277 mosm/kg (275-300); CALCIUM 9.1 mg/dL (8.5-10.1); CARBON DIOXIDE 27.1 mmol/L (21.0-32.0); CHLORIDE - SERUM 103 mmol/L (98-107); CREATININE - SERUM 0.8 mg/dL (0.6-1.3); GLUCOSE 105 mg/dL (74-106); POTASSIUM - SERUM 3.5 mmol/L (3.5-5.1); SODIUM 139 mmol/L (136-145); UREA NITROGEN 12 mg/dL (7-18); eGFR NON AFRICAN AMERICAN 75 mL/min (90-120)
== END 2017-11-13 16:10 | disposition home or self-care (01) ==
LOC: D.ER 12:46 → OBSVTIME 19:34 → D.EDHOLD 19:34 → D.M2 19:34 → D.EDHOLD 19:36 → D.M2 20:12
PROVIDERS: Family Medicine; Internal Medicine Nephrology
DX: R07.9 Chest pain, unspecified (principal); I25.10 Atherosclerotic heart disease of native coronary artery without angina pectoris; Z95.5 Presence of coronary angioplasty implant and graft; Z85.3 Personal history of malignant neoplasm of breast; Z85.118 Personal history of other malignant neoplasm of bronchus and lung; J96.11 Chronic respiratory failure with hypoxia; K21.9 Gastro-esophageal reflux disease without esophagitis; I10 Essential (primary) hypertension; E78.5 Hyperlipidemia, unspecified; J44.9 Chronic obstructive pulmonary disease, unspecified; F17.213 Nicotine dependence, cigarettes, with withdrawal

== ENCOUNTER → 2017-12-15 09:43 | Outpatient (CLI) | payer MEDICARE, OTHER ==
[2017-11-12 11:01] VITALS: BMI 22.3
[~2017-12-15 09:43] MED LIST changes: +[UNRECOGNIZED DRUG - REMARK]
== END | disposition home or self-care (01) ==
LOC: D.RAD 09:43
DX: C34.90 Malignant neoplasm of unspecified part of unspecified bronchus or lung (principal)

== ENCOUNTER → 2018-03-01 08:10 | Outpatient (CLI) | payer MEDICARE, OTHER ==
[2017-11-12 11:01] VITALS: BMI 22.3
== END | disposition home or self-care (01) ==
LOC: D.CT 08:00
DX: R91.8 Other nonspecific abnormal finding of lung field (principal)

== ENCOUNTER → 2018-05-18 12:39 | Outpatient (CLI) | payer MEDICARE, OTHER ==
[2017-11-12 11:01] VITALS: BMI 22.3
== END | disposition home or self-care (01) ==
LOC: D.RT 12:39
PROVIDERS: ATTEND Nurse Practitioner Acute Care
DX: J44.9 Chronic obstructive pulmonary disease, unspecified (principal)

== ENCOUNTER → 2018-07-28 09:05 | Outpatient (CLI) | payer MEDICARE, OTHER ==
[2017-11-12 11:01] VITALS: BMI 22.3
--- NOTE | ~2018-07-28 | ST ---
PATIENT:ROBERTO HENSLEY MEDICAL RECORD: [id number] SEX: F LOCATION:[facility] ORDER #: ADMISSION DATE: 07/28/18 AGE OF PATIENT: 68 REFERRING PHYSICIAN: INTERPRETING PHYSICIAN: BRADY SIDDIQI MD DATE OF SERVICE: 07/28/2018 PROCEDURE: Nuclear stress test. INDICATIONS: Angina and coronary artery disease, shortness of breath, hypertension. She was exercised on standard Lexiscan protocol with 31 mCi of sestamibi injected at peak stress, 10 mCi was used previously for rest images. FINDINGS: Gated SPECT reveals preserved ejection fraction at 71% with good wall motion and thickening and brightening throughout all segments. SPECT Imaging: Cardiolite was used as myocardial fusion agent. There is homogeneous uptake throughout all segments at rest and stress with no evidence of inducible ischemia or previous infarction. OVERALL IMPRESSION: 1. This is a normal nuclear stress test with no evidence of inducible ischemia or previous infarction. 2. Gated SPECT reveals a preserved ejection fraction at 71%. In this patient with ongoing symptomatology, the current scan does not suggest the presence of hemodynamically significant coronary artery disease. Evaluate noncardiac etiology of chest pain. TRANSINT:[id number] Voice Confirmation ID: [id number] DOCUMENT ID: [id number] BRADY SIDDIQI MD CC: DAVE FLEMING MD [id number] DICTATION DATE: 07/28/18 1318 ROCKET PROPELLANT PLANT SUPERVISOR: 07/29/18 0252 DEP CLI 07/28/[address] [id number]
== END | disposition home or self-care (01) ==
LOC: D.HCCARDIO 09:05
PROVIDERS: ATTEND Internal Medicine Interventional Cardiology
DX: I25.10 Atherosclerotic heart disease of native coronary artery without angina pectoris (principal)

== ENCOUNTER → 2018-08-18 08:14 | Outpatient (CLI) | payer MEDICARE, OTHER ==
[2017-11-12 11:01] VITALS: BMI 22.3
== END | disposition home or self-care (01) ==
LOC: D.RT 08:14
PROVIDERS: ATTEND Internal Medicine Pulmonary Disease
DX: J44.9 Chronic obstructive pulmonary disease, unspecified (principal)

== ENCOUNTER → 2018-12-14 10:01 | Outpatient (CLI) | payer MEDICARE, OTHER ==
[2017-11-12 11:01] VITALS: BMI 22.3
== END | disposition home or self-care (01) ==
LOC: D.RAD 10:01
PROVIDERS: ATTEND Internal Medicine Cardiovascular Disease
DX: C34.90 Malignant neoplasm of unspecified part of unspecified bronchus or lung (principal)

== ENCOUNTER 2019-01-23 08:37 | Outpatient (CLI) | payer MEDICARE, OTHER ==
[2017-11-12 11:01] VITALS: BMI 22.3
== END 2019-01-23 10:00 | disposition home or self-care (01) ==
LOC: D.OPS 08:37
PROVIDERS: ATTEND Internal Medicine Cardiovascular Disease
DX: R13.12 Dysphagia, oropharyngeal phase (principal)

== ENCOUNTER → 2019-02-01 07:52 | Outpatient (CLI) | payer MEDICARE, OTHER ==
[2017-11-12 11:01] VITALS: BMI 22.3
== END | disposition home or self-care (01) ==
LOC: D.MRI 07:52
PROVIDERS: ATTEND Nurse Practitioner Family
DX: M54.16 Radiculopathy, lumbar region (principal); M54.6 Pain in thoracic spine

== ENCOUNTER → 2020-07-21 11:01 | Outpatient (CLI) | payer MEDICARE, OTHER ==
[2020-01-17 08:49] VITALS: BMI 23.3
[~2020-07-21 11:01] MED LIST changes: +ADVAIR 250-501 EAC1 INH; +CYMBALTA30 MG PO; +MUCINEX600 MG PO; +NORVASC10 MG PO
== END | disposition home or self-care (01) ==
LOC: D.LAB 11:01
PROVIDERS: ATTEND Internal Medicine Pulmonary Disease
DX: Z11.52 Encounter for screening for COVID-19 (principal)

== ENCOUNTER → 2020-07-25 09:18 | Outpatient (CLI) | payer MEDICARE, OTHER ==
[2020-01-17 08:49] VITALS: BMI 23.3
== END | disposition home or self-care (01) ==
LOC: D.RT 09:18
PROVIDERS: ATTEND Internal Medicine Pulmonary Disease
DX: J44.9 Chronic obstructive pulmonary disease, unspecified (principal)